=== PATIENT | female | born 1980 | race Caucasian/White ===

== ENCOUNTER → 2021-01-15 08:29 | Outpatient (BNVA) | payer OTHER, SELFPAY | PROVIDERS: PCP Family Medicine; Referring Provider Family Medicine; Visit Provider Physician Assistant | DX: E66.01 Morbid (severe) obesity due to excess calories (principal); Z68.42 Body mass index [BMI] 45.0-49.9, adult | CPT/HCPCS: 99202 ==

== ENCOUNTER 2021-01-18 08:02 | Outpatient (REF) | payer OTHER, SELFPAY ==
[2021-01-19 14:26] LABS: H Pylori Breath Test NOT DETECTED (NOT DETECTED)
== END 2021-01-18 08:03 | disposition home or self-care (01) ==
LOC: HO.LNP 08:02
PROVIDERS: Physician Assistant; PCP Family Medicine; Visit Provider Physician Assistant
DX: E66.01 Morbid (severe) obesity due to excess calories (principal); R06.02 Shortness of breath
CPT/HCPCS: 83013

== ENCOUNTER 2021-01-19 07:51 | Outpatient (REF) | payer OTHER, SELFPAY ==
--- NOTE | 2021-01-19 08:02 | ECG_ITS ---
Test Reason : E66.01 Blood Pressure : / mmHG Vent. Rate : 068 BPM Atrial Rate : 068 BPM P-R Int : 164 ms QRS Dur : 076 ms QT Int : 380 ms P-R-T Axes : 035 039 023 degrees QTc Int : 404 ms Normal sinus rhythm Normal ECG No previous ECGs available Referred By: Marga Esparza Electronically Signed By:Kleber Hudson
[2021-01-19 08:29] LABS: MANUAL DIFF FLAG NO
[2021-01-19 08:33] LABS: Eosinophils Absolute Auto 0.1 X10*3/uL (0.0-0.4); Eosinophils Percent Auto 2.9 % (0-4); Hematocrit 41.9 % (37-47); Hemoglobin 13.5 g/dl (12.0-16.0); Imm Gran Abs Auto 0.02 X10*3/uL (0.00-0.03); Imm Gran Pct Auto 0.5 % (0.0-0.4); Lymphocytes Absolute Auto 1.1 X10*3/uL (1.2-4.9); Lymphocytes Percent Auto 29.4 % (20-40); Mean Corpuscular HGB Conc 32.2 g/dl (31.0-35.0); Mean Corpuscular Hemoglobin 27.2 pg (27.0-33.0); Mean Corpuscular Volume 84.3 fL (80-98); Mean Platelet Volume 10.8 fL (9.4-12.3); Monocytes Absolute Auto 0.4 X10*3/uL (0.1-1.2); Monocytes Percent Auto 10.2 % (2-11); Neutrophils Absolute Auto 2.2 X10*3/uL (2.0-8.3); Platelet Count 260 X10*3/uL (160-400); Red Blood Count 4.97 X10*6/uL (4.20-5.50); Red Cell Distribution Width 13.2 % (11.0-16.0); White Blood Count 3.8 X10*3/uL (4.8-10.8)
[2021-01-19 08:56] LABS: Estimated Average Glucose 108 mg/dL; Hemoglobin A1c % 5.4 %
[2021-01-19 09:02] LABS: Alanine Aminotransferase 34 U/L (0-31); Albumin Level 3.8 g/dL (3.5-5.0); Alkaline Phosphatase 96 U/L (39-117); Anion Gap 11 (12-20); Aspartate Amino Transferase 25 U/L (5-31); Bilirubin Total 0.3 mg/dL (0.0-1.0); Blood Urea Nitrogen 13 mg/dL (9-16); Calcium 8.8 mg/dL (8.4-10.2); Carbon Dioxide 23 mmol/L (22-29); Chloride 110 mmol/L (96-108); Cholesterol 172 mg/dL; Estimated Glomerular Filt Rate > 60; Glucose Fasting 111 mg/dL (60-99); HDL Cholesterol 54 mg/dL; Iron 38 mcg/dL (30-160); LDL Cholesterol Calculated 104 mg/dl; Potassium 4.4 mmol/L (3.3-5.1); Sodium 140 mmol/L (135-145); Total Protein 6.7 g/dL (6.5-8.0); Triglycerides 70 mg/dL
[2021-01-19 09:19] LABS: Ferritin 24 ng/mL (10-250); TSH reflex Free T4 1.92 uIU/mL (0.32-4.0); Vitamin D 25-OH Total 32.7 ng/mL (>30)
[2021-01-19 09:23] LABS: Percent Iron Saturation 11 % (15-50); Total Iron Binding Capacity 336 mcg/dL (228-428); Unsaturated Iron Binding 298 ug/dL
[2021-01-19 09:39] LABS: Folate > 20.0 ng/mL (> or = 4.0); Vitamin B12 629 pg/mL (200-900)
[2021-01-22 11:36] LABS: Calcium (PTHI) 8.7 mg/dL (8.6-10.2); PTHI 58 pg/mL (14-64)
[2021-01-22 13:26] LABS: Insulin Level Total 11.3 uIU/mL
[2021-01-22 16:47] LABS: Zinc 74 mcg/dL (60-130)
[2021-01-23 19:41] LABS: Vitamin A 49 mcg/dL (38-98)
[2021-01-26 12:46] LABS: Vitamin B1 17 nmol/L (8-30)
== END 2021-01-19 07:52 | disposition home or self-care (01) ==
LOC: HO.LAB 07:51
PROVIDERS: PCP Family Medicine; Visit Provider Physician Assistant
DX: E66.01 Morbid (severe) obesity due to excess calories (principal); R06.02 Shortness of breath
CPT/HCPCS: 36415; 80053; 80061; 82306; 82607; 82728; 82746; 83036; 83525; 83540; 83970; 84425; 84443; 84590; 84630; 85025; 86140; 93005

== ENCOUNTER → 2021-02-09 08:27 | Outpatient (BNVA) | payer OTHER, SELFPAY | PROVIDERS: PCP Family Medicine; Visit Provider Dietitian, Registered | DX: E66.01 Morbid (severe) obesity due to excess calories (principal); Z68.41 Body mass index [BMI] 40.0-44.9, adult; Z71.3 Dietary counseling and surveillance | CPT/HCPCS: 97802 ==

== ENCOUNTER 2021-02-12 08:53 | Outpatient (REF) | payer OTHER, SELFPAY ==
--- NOTE | ~2021-02-12 | FL_ITS ---
EXAMINATION: XR GI SERIES CLINICAL INFORMATION: Obesity COMPARISON: None TECHNIQUE: Upper GI was performed using thin and barium and effervescent granules. FINDINGS: Esophageal motility is normal. The esophagus is normal. No hernia or reflux is seen. The stomach and duodenum are normal. No fold thickening, mass, ulcer or stricture is seen. FLUOROSCOPY TIME: 0.7 minutes DOSE AREA PRODUCT: 10 jackson per centimeter squared. 16 saved fluoroscopic images. FL/FL upper GI series IMPRESSION: Unremarkable examination.
--- NOTE | ~2021-02-12 | US_ITS ---
EXAMINATION: US COMPLETE ABDOMEN WITH LIVER ELASTOGRAPHY CLINICAL INFORMATION: Obesity. COMPARISON: None. TECHNIQUE: Real-time imaging of the abdominal viscera. Noninvasive ultrasound liver fibrosis assessment is performed using Yvon ElastPQ point quantification shear wave elastography (pSWE) with a C5-2 MHz transducer. Multiple elastography samples are obtained. FINDINGS: PANCREAS: Normal. The visualized pancreatic head and body are normal in appearance. The remainder of the pancreas is obscured from visualization by the overlying bowel gas. ABDOMINAL AORTA: The proximal, middle, and distal aortic segments are normal in caliber. INFERIOR VENA CAVA: Visualized portions are normal. LIVER: There is mildly increased liver parenchymal echogenicity. No focal hepatic mass is seen. The liver is normal in size and contour. No biliary ductal dilatation. The right lobe measures 18.4 cm in length. The left lobe measures 10.4 cm in length. Portal flow is towards the liver (hepatopetal). Shear wave liver elastography median stiffness is 1.18 m/s (reference: normal median stiffness is 1.3 m/s or less). IQR/median stiffness to assess sampling precision is 0.16 (reference: good quality data set is IQR/median stiffness of 0.15 or less). GALLBLADDER: There are large shadowing gallstones, without polyps, wall thickening or pericholecystic fluid. COMMON BILE DUCT: Normal in caliber measuring 0.3 cm in diameter. RIGHT KIDNEY: Normal. No hydronephrosis. No renal calculi or focal parenchymal lesions. The kidney measures 12.2 cm in maximum dimension. LEFT KIDNEY: Normal. No hydronephrosis. No renal calculi or focal parenchymal lesions. The kidney measures 11.9 cm in maximum dimension. SPLEEN: Normal. The spleen measures 12.1 cm in maximum dimension. FREE FLUID: None. US/US abdomen comp w elastography IMPRESSION: 1. There is generalized increase in hepatic echotexture, consistent with fatty infiltration or hepatocellular disease. Please correlate clinically. No focal hepatic mass or intrahepatic biliary dilatation is seen. 2. Liver elastography: Although measurements suggest a high probability of normal liver stiffness, there is statistical variability of the sampling which decreases accuracy. 3. There is cholelithiasis, without cholecystitis seen. REFERENCE: Society of Radiologists in Ultrasound Liver Stiffness Thresholds (2020): LIVER STIFFNESS THRESHOLDS: *Liver Stiffness equal or less than 1.3 m/s: High probability of being normal. *Liver Stiffness less than 1.7 m/s: In the absence of other known clinical signs, rules out compensated advanced chronic liver disease. *Liver Stiffness 1.7-2.1 m/s: Suggestive of compensated advanced chronic liver disease but need further test for confirmation. *Liver Stiffness over 2.1 m/s: Rules in compensated advanced chronic liver disease. *Liver Stiffness over 2.4 m/s: Suggestive of clinically significant portal hypertension. QUALITY OF DATA SET: *IQR/Median value equal or less than 0.15 implies a quality data set. *IQR/Median value over 0.15 implies a poor quality data set. SIGNIFICANT CHANGE FROM PRIOR EXAM: Significant change if liver stiffness measurement is 10% or greater from prior exam. OTHER CONSIDERATIONS: The stage of liver fibrosis may be overestimated in the setting of acute hepatitis, liver inflammation, elevated liver function tests, hepatic vascular congestion, obstructive cholestasis, non-fasting state, and infiltrative diseases such as amyloidosis and lymphoma. In some patients with NAFLD, the liver stiffness thresholds for compensated advanced chronic liver disease may be lower. In causes other than viral hepatitis and NAFLD, liver stiffness thresholds are not well established.
--- NOTE | ~2021-02-12 | XR_ITS ---
EXAMINATION: XR CHEST 2 VIEWS CLINICAL INFORMATION: Morbid obesity. COMPARISON: None. TECHNIQUE: Frontal and lateral views of the chest were obtained. FINDINGS: The heart, great vessels, pulmonary vasculature and mediastinum are normal. The lungs show no focal infiltrate, effusion or pneumothorax. There is no acute osseous abnormality. XR/XR chest 2V IMPRESSION: No active cardiopulmonary disease.
== END 2021-02-12 08:54 | disposition home or self-care (01) ==
LOC: HO.US 08:53
PROVIDERS: PCP Family Medicine; Visit Provider Surgery
DX: Z01.818 Encounter for other preprocedural examination (principal); E66.01 Morbid (severe) obesity due to excess calories; K21.9 Gastro-esophageal reflux disease without esophagitis; R06.02 Shortness of breath
CPT/HCPCS: 71046; 74240; 76705; 76981

== ENCOUNTER → 2021-03-12 07:45 | Outpatient (BNVA) | payer OTHER, SELFPAY | PROVIDERS: PCP Family Medicine; Visit Provider Surgery ==

== ENCOUNTER → 2021-04-04 08:09 | Outpatient (BNVA) | payer OTHER, SELFPAY | PROVIDERS: PCP Family Medicine; Visit Provider Surgery ==

== ENCOUNTER → 2021-04-30 07:56 | Outpatient (BNVA) | payer OTHER, SELFPAY | PROVIDERS: PCP Family Medicine; Visit Provider Surgery ==

== ENCOUNTER 2021-05-03 08:27 | Day surgery (SDC) | payer OTHER, SELFPAY ==
[2021-04-27 10:54] VITALS: BMI 41.8
[2021-04-30 08:00] LABS: MANUAL DIFF FLAG NO
[2021-04-30 08:42] LABS: Prothrombin Time 11.5 SEC (9.9-13.0)
[2021-04-30 08:43] LABS: Basophils Percent Auto 0.6 % (0-2); Eosinophils Absolute Auto 0.2 X10*3/uL (0.0-0.4); Eosinophils Percent Auto 2.9 % (0-4); Hematocrit 42.1 % (37.0-47.0); Hemoglobin 13.9 g/dl (12.0-16.0); Imm Gran Abs Auto 0.03 X10*3/uL (0.00-0.03); Imm Gran Pct Auto 0.6 % (0.0-0.4); Lymphocytes Absolute Auto 1.1 X10*3/uL (1.2-4.9); Lymphocytes Percent Auto 21.7 % (20-40); Mean Corpuscular Hemoglobin 27.7 pg (27.0-33.0); Mean Corpuscular Volume 83.9 fL (80.0-98.0); Mean Platelet Volume 11.2 fL (9.4-12.3); Monocytes Absolute Auto 0.3 X10*3/uL (0.1-1.2); Monocytes Percent Auto 6.5 % (2-11); Neutrophils Absolute Auto 3.5 x10*3/uL (2.0-8.3); Neutrophils Percent Auto 67.7 % (45-73); Platelet Count 243 X10*3/uL (160-400); Red Blood Count 5.02 X10*6/uL (4.20-5.50); Red Cell Distribution Width 13.1 % (11.0-16.0); White Blood Count 5.2 X10*3/uL (4.8-10.8)
[2021-04-30 08:45] LABS: Partial Thromboplastin Time 35.7 SEC (24.1-38.0)
[2021-04-30 09:04] LABS: Alanine Aminotransferase 20 U/L (0-31); Albumin Level 3.8 g/dL (3.5-5.0); Alkaline Phosphatase 77 U/L (39-117); Anion Gap 10 (12-20); Aspartate Amino Transferase 19 U/L (5-31); Bilirubin Total 0.7 mg/dL (0.0-1.0); Blood Urea Nitrogen 9 mg/dL (9-16); Calcium 8.8 mg/dL (8.4-10.2); Carbon Dioxide 26 mmol/L (22-29); Chloride 107 mmol/L (96-108); Creatinine Clr Calc Pharmacy 138.4; Estimated Glomerular Filt Rate > 60; Glucose Random 111 mg/dL (60-115); Sodium 139 mmol/L (135-145); Total Protein 6.5 g/dL (6.5-8.0)
--- NOTE | 2021-05-02 10:22 | HO.ANESPROP2 ---
Documented by User: Tarsha Camargo NP 05/02/21 10:23 HPI - Anesthesia Eval Consult details Narrative: 41yo F for Cholecystectomy Laparoscopic PMFSH Active Problems Active Problems: All Active Problems (Updated 04/30/21 @ 07:57 by Curt Landis MD) Cholelithiasis (Acute) Nausea (Acute) Adjustment disorder, unspecified (Acute) Morbid obesity (Acute) BMI 45.0-49.9, adult (Acute) Arthritis (Acute) Past Medical History Medical History (Updated 04/30/21 @ 07:57 by Curt Landis MD) Arthritis BMI 45.0-49.9, adult COVID-19 vaccine series completed History of adenoid cystic carcinoma Morbid obesity Pre-diabetes Torn meniscus Family History Family History (Updated 01/15/21 @ 08:56 by Tayla Sandy) Mother COVID-19 Sister No problems noted. Sister No problems noted. Sister No problems noted. Son No problems noted. Daughter No problems noted. Daughter No problems noted. Brother Crohn disease Brother No problems noted. Brother No problems noted. Father COVID-19 Crohn disease Surgical History Surgical History (Updated 01/15/21 @ 08:47 by Tayla Sandy) Hx of tonsillectomy Hx of wisdom tooth extraction Social History Social History (Updated 02/15/21 @ 14:10 by Vivek Sandy, [facility]) Alcohol intake: current Alcohol intake frequency: holidays/special occasions only Patient Tobacco Use Status: Never used Tobacco Use of substances other than those prescribed or required for medical reasons: No Have you been hit, kicked, punched, or otherwise hurt by someone within the past year? If so, by whom?: No Are you DNR?: No Advance Directives: No Advance Directives Information Provided: Yes (informational brochure mailed) Advance Directives on File: No Recently lost weight without trying: No Eating poorly because of decreased appetite: No Nutrition Risks: No Nutritional Risk Patient : No FDLMP: 04/15/21 Poor oral hygiene: No Meds Allergies Allergy/AdvReac Type Severity Reaction Status Date / Time No Known Allergies Allergy Verified 03/12/21 12:31 [No Known Allergies*] Exam Exam Date and Time: May 02, 2021 1022 Height,Weight and Vital Signs: Height 5 ft 6 in Weight 117.48 kg Pertinent Lab Results Pertinent Lab Results: Laboratory Tests 04/30/21 04/30/21 04/30/21 07:45 07:45 07:45 WBC 5.2 RBC 5.02 Hgb 13.9 Hct 42.1 MCV 83.9 MCH 27.7 MCHC 33.0 RDW 13.1 Plt Count 243 MPV 11.2 Immature Gran % (Auto) 0.6 H Neut % (Auto) 67.7 Lymph % (Auto) 21.7 [place] % (Auto) 6.5 Eos % (Auto) 2.9 Baso % (Auto) 0.6 Lymph # (Auto) 1.1 L [place] # (Auto) 0.3 Eos # (Auto) 0.2 Baso # (Auto) 0.0 Abs Immat Gran (auto) 0.03 Absolute Neuts (auto) 3.5 Absolute Nucleated RBC 0.000 Nucleated RBC % (auto) 0.0 PT 11.5 INR 1.0 APTT 35.7 Sodium 139 Potassium 4.0 Chloride 107 Carbon Dioxide 26 Anion Gap 10 L BUN 9 Creatinine 0.69 Estim Creat Clear Calc 138.4 Estimated GFR > 60 Random Glucose 111 Calcium 8.8 Total Bilirubin 0.7 AST 19 ALT 20 Alkaline Phosphatase 77 Total Protein 6.5 Albumin 3.8 Blood Type Antibody Screen 04/30/21 07:45 WBC RBC Hgb Hct MCV MCH MCHC RDW Plt Count MPV Immature Gran % (Auto) Neut % (Auto) Lymph % (Auto) [place] % (Auto) Eos % (Auto) Baso % (Auto) Lymph # (Auto) [place] # (Auto) Eos # (Auto) Baso # (Auto) Abs Immat Gran (auto) Absolute Neuts (auto) Absolute Nucleated RBC Nucleated RBC % (auto) PT INR APTT Sodium Potassium Chloride Carbon Dioxide Anion Gap BUN Creatinine Estim Creat Clear Calc Estimated GFR Random Glucose Calcium Total Bilirubin AST ALT Alkaline Phosphatase Total Protein Albumin Blood Type A Positive Antibody Screen NEGATIVE Narrative Narrative: EKG 01/2021 Vent. Rate : 068 BPM ? ? Atrial Rate : 068 BPM ?? P-R Int : 164 ms? QRS Dur : 076 ms ? ? QT Int : 380 ms ? ? ? P-R-T Axes : 035 039 023 degrees ?? QTc Int : 404 ms ? Normal sinus rhythm Normal ECG No previous ECGs available Assessment and Plan Assessment Anesthesia Assessment: Chart Reviewed Documented by User: Rocio Cerna MD 05/03/21 10:00 [facility] Past Medical History Medical History (Updated 04/30/21 @ 07:57 by Curt Landis MD) Arthritis BMI 45.0-49.9, adult COVID-19 vaccine series completed History of adenoid cystic carcinoma Morbid obesity Pre-diabetes Torn meniscus Family History Family History (Updated 01/15/21 @ 08:56 by Tayla Sandy) Mother COVID-19 Sister No problems noted. Sister No problems noted. Sister No problems noted. Son No problems noted. Daughter No problems noted. Daughter No problems noted. Brother Crohn disease Brother No problems noted. Brother No problems noted. Father COVID-19 Crohn disease Family history of problems with anesthesia: No Surgical History Surgical History (Updated 01/15/21 @ 08:47 by Tayla Sandy) Hx of tonsillectomy Hx of wisdom tooth extraction History of Problems with Anesthesia: No Social History Social History (Updated 02/15/21 @ 14:10 by Vivek Sandy, [facility]) Alcohol intake: current Alcohol intake frequency: holidays/special occasions only Patient Tobacco Use Status: Never used Tobacco Use of substances other than those prescribed or required for medical reasons: No Have you been hit, kicked, punched, or otherwise hurt by someone within the past year? If so, by whom?: No Are you DNR?: No Advance Directives: No Advance Directives Information Provided: Yes (informational brochure mailed) Advance Directives on File: No Recently lost weight without trying: No Eating poorly because of decreased appetite: No Nutrition Risks: No Nutritional Risk Patient : No FDLMP: 04/15/21 Poor oral hygiene: No Meds Allergies Allergy/AdvReac Type Severity Reaction Status Date / Time No Known Allergies Allergy Verified 03/12/21 12:31 [No Known Allergies*] Exam Height,Weight and Vital Signs: Height 5 ft 6 in Weight 117.48 kg Vital Signs Temp Pulse Resp BP Pulse Ox 05/03/21 09:26 98.4 F 72 16 108/52 L 99 Airway Mallampati Class: II TM Dist: >3cm Neck ROM: Full Loose/Missing/Broken Teeth: No Heart: RRR Lungs: CTAB Assessment and Plan Assessment Anesthesia Assessment: Anesthesia Plan Discussed Final Anesthetic Review Family History of Problems with Anesthesia: No History of Problems with Anesthesia: No NPO: Yes ASA Class: III Final Preanesthetic Review: No Changes in Pt Med Stat, Meds/Allgs Chart Reviewed, Consent Obtained/Reviewed and Anes Risks/Benef Reviewed Patient Risk: Intermediate Procedure Risk: Intermediate Assessment/Block/Sedation in SS: Assess/Block/Sedation-SS Anesthetic Plan Anesthetic Plan: GA Disposition: Standard PACU and Inp. Admit - Standard Bed
--- NOTE | 2021-05-02 17:30 | P.HPSUR_ITS ---
Pre-Procedural Eval Section A Date of Service: 05/02/21 The patient is an INPATIENT: No The History & Physical has been completed within 30 days and I have reviewed it.: Yes Section B Chief Complaint: Cholecysytitis Relevant Family History (Specify if Yes): No Relevant Social History: None Present Medications: None Medical History: No relevant PMH History of Previous Operations: No relevant previous surgery Allergies: Allergies Allergy/AdvReac Type Severity Reaction Status Date / Time No Known Allergies Allergy Verified 03/12/21 12:31 [No Known Allergies*] Review of Systems Sugical H&P ROS: Negative: Constitution, Cardiovascular, Respiratory, Neurological, Psychiatric, Hem-Onc, Allergic/Immunologic, Gastrointestinal, Genitourinary, Musculoskeletal, Integumentary, Endocrine and Eyes/Ears/Nose/Thr oat Exam Surgical H&P Exam: Normal: HEENT, Normal: Heart, Normal: Lungs, Normal: Extremities, Normal: Abdomen, Normal: Skin and Normal: Neurological Plan Diagnosis/Plan: Unchanged I have reviewed the history and physical and performed a pertinent physical examination on my patient. No changes have occurred unless specified.
[2021-05-03] VITALS (14 sets, daily range): BP systolic 108–132; BP diastolic 48–80; PULSE 58–77; RESP 14–18; TEMP 36.1–37.2; O2SAT 95–100; BMI 41.4
[2021-05-03 09:05] LABS: UPreg QC Valid YES; Urine Pregnancy NEGATIVE (NEGATIVE)
[2021-05-03] MEDS: Lactated Ringers 1,000 ML 100 ML IVCONT (09:28)
[2021-05-03 09:30] LABS: COVID-19 Test Negative (Negative)
--- NOTE | 2021-05-03 13:06 | PM.DS ---
DS: Providers Provider Primary care physician: Frieda Fisher MD DS: Summary Hospital Course Hospital Course: ADMITTING DIAGNOSIS: morbid obesity, cholelithiasis DISCHARGE DIAGNOSIS: same, s/p laparoscopic cholecystectomy PAST SURGICAL HISTORY: tonsils and wisdom teeth PROCEDURE: laparoscopic cholecystectomy DISCHARGE SUMMARY: History of Present Illness: The patient is a 41 year-old woman with a BMI of 41.5 who has been preparing for surgery. She was found to have cholelithiasis and consented to undergo elective laparoscopic cholecystecotmy on the day of admission. Please see operative report by Dr Landis. Hospital Course: The patient underwent laparoscopic cholecystectomy on the day of admission. Decision was made by Dr Landis to keep the patient overngith for observation. Postoperatively, the patient was transferred to the surgical floor. The patient received IV Acetaminophen and IV dilaudid for pain control. Patient was kept NPO POD #0. On postoperative day one, the patient was feeling well without nausea, vomiting, fevers, or tachycardia. The patient had some mild incisional pain and the abdomen was soft. On the morning of postoperative day one, patients diet was advanced, she had stable labs. During the day, the patient did fairly well, having some incisional pain, but able to ambulate adequately and to tolerate liquids well. Since the patient is doing well, we decided that the patient was ready to be discharged. The patient was given instructions to follow-up with me next week and to call my office for any fever over 101, persistent abdominal pain, nausea, vomiting, GERD, symptoms of DVT such as calf tenderness, or leg swelling, or pulmonary embolism such as chest pain or shortness of breath. The patient was encouraged to ambulate and use the incentive spirometer. The patient was allowed to shower, but no baths, and encouraged to stay active at home. All of these instructions were given to the patient personally. All questions were answered and the patient understood all instructions, the instructions were also given to the patient in print. Time Spent with Patient Time attestation: Total time spent providing and/or coordinating discharge services: Physical Exam Vital Signs: Vital Signs: Last Vital Signs Temp 98.4 F 05/03/21 09:26 Pulse 72 05/03/21 09:26 Resp 16 05/03/21 09:26 BP 108/52 L 05/03/21 09:26 Pulse Ox 99 05/03/21 09:26 Body Mass Index 41.4 DS: Data Data Completed and Pending Pending studies at discharge: Pending at discharge 05/03/21 12:24 Surgical [PTH] Routine Labs on day of discharge: Laboratory Results - last 24 hr 05/03/21 05/03/21 08:30 08:31 Urine Test NEGATIVE COVID-19 ([facility]) Negative COVID-19 Clin Com See Note Discharge Plan Discharge Patient Disposition: Home, Self-Care Referrals: Frieda Fisher MD [Primary Care Provider] - 1 Week Discharge Medications: No Action ondansetron HCl [Zofran] 4 mg tablet 4 mg PO Q12H Qty: 20 RF: 0
--- NOTE | 2021-05-03 13:10 | PM.OP ---
Brief Operative Note Date of Service: 05/03/21 Pre-op diagnosis: Cholelithiasis Post-op diagnosis: other (Cholelithiasis and chronic cholecystitis, extensive adhesions) Procedure: PROCEDURE DATE: ?05/02/2021 PREOPERATIVE DIAGNOSIS: Symptomatic cholelithiasis, morbid obesity with a body mass index of 45.2 kg/sq. meters and comorbidities including prediabetes and liver steatosis POSTOPERATIVE DIAGNOSIS: ?Same as above. Chronic cholecystitis, intraoperative adhesions PROCEDURE: Laparoscopic cholecystectomy and extensive laparoscopic lysis of adhesions Surgeon: ? José Luis Landis M.D., Ph.D. Propulsion Machinery Service Engineer: ?Leida Wright PA-C ? Anesthesia: General endotracheal anesthesia Estimated blood loss: ?20ml FINDINGS AND PROCEDURE: ? OPERATIVE INDICATIONS: ?The patient is a 41 year old female known to me who was initially seen in my office for evaluation for refractory morbid obesity.? During the preoperative workup, the patient was found to have cholelithiasis which appears to be symptomatic.? We recommended cholecystectomy before the bariatric surgery due to the higher risks of acute cholecystitis after the bariatric surgery as a result of the rapid weight loss. Risks and complications of the surgery were discussed with the patient in advance, particularly the postoperative bleeding, infection, DVT or PE, bile leak, major bile duct injury that may require additional surgical intervention, cardiac, pulmonary or renal complications among others.? The patient understood the risks and was in agreement with the plan. PROCEDURE: After informed consent was obtained by the patient, the patient was transferred to the Operating Room and was placed in the supine position.? The patient was given preoperative antibiotics and after successful induction of general anesthesia, pneumatic compression devices were placed. ? The patient was then prepped and draped in the usual sterile manner and abdominal access was ?established with Angela technique.? The abdomen was insufflated with C02 to a pressure of 15 mmHg. A 5 mm Versi-step port was placed, slightly to the right and superior from the umbilicus. The 5 mm camera was introduced.? I inspected the area where the port had been placed and there was no injury.? The patient was then placed initially in a steep reverse Trendelenburg position and three additional ports were placed, specifically a 12 mm Versi-step port just to the right of the midline below the xiphoid process and two 5 mm Versi-step ports at the right upper quadrant and right flank. ? At that point the patient was ?placed in a steep reverse Trendelenburg position tilted to the left side. The gallbladder was retracted cephalad and laterally. There were extensive adhesions between the omentum and the entire gallbladder wall and liver. Extensive adhesiolysis was required and all adhesions were taken down with the cautery. ? The peritoneal attachments of the gallbladder ?at the triangle of Calot posteriorly and anteriorly were taken down.? The cystic duct and artery were both seen. Dissection was very difficult due to dense fibrotic reaction from previous episodes of cholecystitis, body habitus and hepatomegaly. They were eventually completely dissected free, skeletonized all the way to the infundibulum of the gallbladder. In a similar fashion I also cleaned the liver bed just behind the cystic artery all the way to the liver bed half way to the top of the gallbladder, to make sure there was no additional structures in this area.? Once I confirmed that both structures were entering into the gallbladder ?and there were no other structures in the area, they were both clipped with two clips proximally, one distally and were cut in-between. Then using the electrocautery, I slowly took down the gallbladder ?from the liver bed. Small areas of bleeding from the liver parenchyma were controlled with the cautery as well as with the use of Surgicel.? After the gallbladder was completely detached from the liver bed, it was placed in an EndoCatch bag and was removed without difficulty from the xiphoid port. I then inspected the clips at the cystic duct and artery and were both in place.?A piece of Surgicel was placed at the area of the cystic artery and duct. There was no active bleeding from the liver bed. I removed all fluid until clear. At that point the patient was placed in supine position, we deflated the abdomen and we removed all ports under direct vision and no bleeding was noted from any of the port sites. The fascia of the 12 mm port was closed using a #1 Polysorb suture. 60cc 0.25% Marcaine and Hydrocortisone were used to infiltrate the fascial closure as well as all skin incisions. The wounds were irrigated with saline mixed with antibiotic solution and then the skin was closed with 4-0 Monocryl subcuticular sutures antibiotic-coated. Steri-strips and OpSites were used to cover all incisions. The patient extubated and was transferred in stable condition to the Recovery Room for further care. I was present and performed all steps of the procedure. Ms. Wright was the certified surgical tech/first assistant.? There were no residents to assist with this case. Procedure was very difficult due to the reasons described above with significant prolongation of the operative time to 2 hours and 15 minutes. José Luis Landis M.D., Ph.D., F.A.C.S. Surgeon: Curt Landis MD Anesthesia: GETA, local and other (TAP block) Was an Propulsion Machinery Service Engineer used for this Procedure?: Yes Propulsion Machinery Service Engineer: Leida Wright Estimated blood loss (mL): 20 IV fluids (mL): 2,500 Urine output (mL): 0 (No Lim to record) Pathology: other (Gallbladder) Condition: stable Disposition: PACU
[2021-05-03 13:38] LABS: Hematocrit 43.4 % (37.0-47.0); Hemoglobin 13.9 g/dl (12.0-16.0)
[2021-05-03] MEDS: fentaNYL citrate/PF 100 MCG/2 ML VIAL 25 MCG IVPUSH (13:42)
[2021-05-03 14:08] LABS: Anion Gap 13 (12-20); Blood Urea Nitrogen 11 mg/dL (9-16); Calcium 8.5 mg/dL (8.4-10.2); Carbon Dioxide 21 mmol/L (22-29); Chloride 107 mmol/L (96-108); Creatinine Clr Calc Pharmacy 117.4; Estimated Glomerular Filt Rate > 60; Glucose Random 132 mg/dL (60-115); Potassium 4.4 mmol/L (3.3-5.1); Sodium 137 mmol/L (135-145)
--- NOTE | 2021-05-03 15:06 | PC.NURSE ---
Dr. George at bedside reviewed vitals and labs talked with patient and will be discharging her home. awaiting orders.
== END 2021-05-03 15:47 | disposition home or self-care (01) ==
LOC: HO.SSS 14:32 → HO.S3 14:36
PROVIDERS: Nurse Practitioner; Physician Assistant; PCP Family Medicine; Visit Provider Surgery
PROC: 0FT44ZZ Resection of Gallbladder, Percutaneous Endoscopic Approach (ICD-10-PCS; CPT 47562; principal; 2021-05-03 10:10)
DX: K80.10 Calculus of gallbladder with chronic cholecystitis without obstruction (principal); K66.0 Peritoneal adhesions (postprocedural) (postinfection); E66.01 Morbid (severe) obesity due to excess calories; Z68.42 Body mass index [BMI] 45.0-49.9, adult; K76.0 Fatty (change of) liver, not elsewhere classified; R73.03 Prediabetes; Z85.858 Personal history of malignant neoplasm of other endocrine glands; Z20.822 Contact with and (suspected) exposure to COVID-19
CPT/HCPCS: 47562; 36415; 80048; 80053; 81025; 85014; 85018; 85025; 85610; 85730; 86850; 86900; 86901; 87635; 88304; J0131; J0690; J1100; J2250; J2405; J3010

== ENCOUNTER → 2021-05-16 07:17 | Outpatient (BNVA) | payer OTHER, SELFPAY | PROVIDERS: PCP Family Medicine; Referring Provider Family Medicine; Visit Provider Surgery | DX: E66.01 Morbid (severe) obesity due to excess calories (principal); Z90.49 Acquired absence of other specified parts of digestive tract; Z68.41 Body mass index [BMI] 40.0-44.9, adult | CPT/HCPCS: 99212 ==

== ENCOUNTER → 2021-05-18 13:25 | Outpatient (BNVA) | payer OTHER, SELFPAY | PROVIDERS: PCP Family Medicine; Referring Provider Family Medicine; Visit Provider Physician Assistant ==

== ENCOUNTER 2021-05-24 07:39 | Outpatient (REF) | payer OTHER, SELFPAY ==
[2021-05-24 08:07] LABS: MANUAL DIFF FLAG NO
[2021-05-24 08:43] LABS: Basophils Absolute Auto 0.1 X10*3/uL (0.0-0.2); Basophils Percent Auto 0.9 % (0-2); Eosinophils Absolute Auto 0.2 X10*3/uL (0.0-0.4); Eosinophils Percent Auto 3.6 % (0-4); Hematocrit 41.6 % (37.0-47.0); Hemoglobin 13.2 g/dl (12.0-16.0); Imm Gran Abs Auto 0.03 X10*3/uL (0.00-0.03); Imm Gran Pct Auto 0.6 % (0.0-0.4); Lymphocytes Absolute Auto 1.3 X10*3/uL (1.2-4.9); Lymphocytes Percent Auto 23.9 % (20-40); Mean Corpuscular HGB Conc 31.7 g/dl (31.0-35.0); Mean Corpuscular Hemoglobin 27.4 pg (27.0-33.0); Mean Corpuscular Volume 86.3 fL (80.0-98.0); Mean Platelet Volume 11.9 fL (9.4-12.3); Monocytes Absolute Auto 0.3 X10*3/uL (0.1-1.2); Monocytes Percent Auto 6.4 % (2-11); Neutrophils Absolute Auto 3.4 x10*3/uL (2.0-8.3); Neutrophils Percent Auto 64.6 % (45-73); Platelet Count 288 X10*3/uL (160-400); Red Blood Count 4.82 X10*6/uL (4.20-5.50); Red Cell Distribution Width 12.8 % (11.0-16.0); White Blood Count 5.3 X10*3/uL (4.8-10.8)
[2021-05-24 09:12] LABS: Alanine Aminotransferase 78 U/L (0-31); Albumin Level 3.8 g/dL (3.5-5.0); Alkaline Phosphatase 97 U/L (39-117); Anion Gap 12 (12-20); Aspartate Amino Transferase 42 U/L (5-31); Bilirubin Total 0.6 mg/dL (0.0-1.0); Blood Urea Nitrogen 9 mg/dL (9-16); C Reactive Protein 0.54 mg/dL (< or = 0.50); Calcium 9.7 mg/dL (8.4-10.2); Carbon Dioxide 26 mmol/L (22-29); Chloride 108 mmol/L (96-108); Cholesterol 162 mg/dL; Estimated Glomerular Filt Rate > 60; Glucose Random 104 mg/dL (60-115); HDL Cholesterol 52 mg/dL; LDL Cholesterol Calculated 81 mg/dl; Potassium 3.8 mmol/L (3.3-5.1); Sodium 142 mmol/L (135-145); Total Protein 6.5 g/dL (6.5-8.0); Triglycerides 149 mg/dL
[2021-05-24 09:19] LABS: Estimated Average Glucose 103 mg/dL; Hemoglobin A1c % 5.2 %
[2021-05-24 09:25] LABS: Prothrombin Time 10.8 SEC (9.9-13.0)
[2021-05-24 09:27] LABS: Partial Thromboplastin Time 36.8 SEC (24.1-38.0)
[2021-05-24 09:37] LABS: TSH reflex Free T4 1.57 uIU/mL (0.32-4.0)
[2021-05-24 10:39] LABS: Insulin 7 uU/mL (2-29)
== END 2021-05-24 07:40 | disposition home or self-care (01) ==
LOC: HO.LAB 07:39
PROVIDERS: PCP Family Medicine; Visit Provider Surgery
DX: E66.01 Morbid (severe) obesity due to excess calories (principal)
CPT/HCPCS: 36415; 80053; 80061; 83036; 83525; 84443; 85025; 85610; 85730; 86140

== ENCOUNTER 2021-05-31 10:02 | Inpatient (IN) | payer OTHER, SELFPAY ==
[2021-05-17 09:37] VITALS: BMI 40.7
--- NOTE | 2021-05-26 20:38 | P.HPSUR_ITS ---
Pre-Procedural Eval Section A Date of Service: 05/26/21 The patient is an INPATIENT: Yes The History & Physical has been completed within 30 days and I have reviewed it.: Yes Section B Chief Complaint: Morbid Severe Obesity Relevant Family History (Specify if Yes): No Relevant Social History: None Present Medications: None Medical History: No relevant PMH History of Previous Operations: No relevant previous surgery Allergies: Allergies Allergy/AdvReac Type Severity Reaction Status Date / Time No Known Allergies Allergy Verified 05/16/21 07:33 [No Known Allergies*] Review of Systems Sugical H&P ROS: Negative: Constitution, Cardiovascular, Respiratory, Neurological, Psychiatric, Hem-Onc, Allergic/Immunologic, Gastrointestinal, Genitourinary, Musculoskeletal, Integumentary, Endocrine and Eyes/Ears/ Nose/Throat Exam Surgical H&P Exam: Normal: HEENT, Normal: Heart, Normal: Lungs, Normal: Extremities, Normal: Abdomen, Normal: Skin and Normal: Neurological Plan Diagnosis/Plan: Unchanged I have reviewed the history and physical and performed a pertinent physical examination on my patient. No changes have occurred unless specified.
--- NOTE | 2021-05-30 09:37 | HO.ANESPROP2 ---
Documented by User: Tarsha Camargo NP 05/30/21 09:46 HPI - Anesthesia Eval Consult details Narrative: 41yo F for Gastrectomy Sleeve, EGD, Possible Diaphragmatic Hernia, Possible Ventral Hernia, Possible open s/p lap bia 04/2021 with GA-ETT 7 PMFSH Active Problems Active Problems: All Active Problems (Updated 05/08/21 @ 00:03 by Background Daemon) Cholelithiasis (Acute) S/P laparoscopic cholecystectomy (Acute) Morbid obesity (Acute) Past Medical History Medical History (Updated 05/08/21 @ 00:03 by Background Daemon) Adjustment disorder, unspecified Arthritis BMI 45.0-49.9, adult COVID-19 vaccine series completed History of adenoid cystic carcinoma Morbid obesity Nausea Pre-diabetes Torn meniscus Family History Family History Mother COVID-19 Sister No problems noted. Sister No problems noted. Sister No problems noted. Son No problems noted. Daughter No problems noted. Daughter No problems noted. Brother Crohn disease Brother No problems noted. Brother No problems noted. Father COVID-19 Crohn disease Family history of problems with anesthesia: No Surgical History Surgical History (Updated 05/17/21 @ 09:21 by Amanda Ramesh RN) Hx laparoscopic cholecystectomy Hx of tonsillectomy Hx of wisdom tooth extraction History of Problems with Anesthesia: No Social History Social History Are you a primary health care recruiter to a significant other at home: No Do you presently have visiting nurse or other home services: No Alcohol intake: current Alcohol intake frequency: holidays/special occasions only Patient Tobacco Use Status: Never used Tobacco Meds Allergies Allergy/AdvReac Type Severity Reaction Status Date / Time No Known Allergies Allergy Verified 05/31/21 06:17 [No Known Allergies*] Exam Exam Date and Time: May 30, 2021 0937 Height,Weight and Vital Signs: Height 5 ft 6 in Weight 114.577 kg Pertinent Lab Results Pertinent Lab Results: Laboratory Tests 05/24/21 08:00 Blood Type A Positive Antibody Screen NEGATIVE Laboratory Tests 05/24/21 05/24/21 08:00 08:00 WBC 5.3 Hgb 13.2 Hct 41.6 Plt Count 288 Sodium 142 Potassium 3.8 Chloride 108 Carbon Dioxide 26 BUN 9 Creatinine 0.69 Narrative Narrative: EKG 01/2021 Vent. Rate : 068 BPM ? ? Atrial Rate : 068 BPM ?? P-R Int : 164 ms? QRS Dur : 076 ms ? ? QT Int : 380 ms ? ? ? P-R-T Axes : 035 039 023 degrees ?? QTc Int : 404 ms ? Normal sinus rhythm Normal ECG No previous ECGs available Assessment and Plan Assessment Anesthesia Assessment: Chart Reviewed Final Anesthetic Review Family History of Problems with Anesthesia: No History of Problems with Anesthesia: No Documented by User: Rocio Cerna MD 05/31/21 07:27 [facility] Past Medical History Medical History (Updated 05/08/21 @ 00:03 by Anthony Farmer) Adjustment disorder, unspecified Arthritis BMI 45.0-49.9, adult COVID-19 vaccine series completed History of adenoid cystic carcinoma Morbid obesity Nausea Pre-diabetes Torn meniscus Family History Family History Mother COVID-19 Sister No problems noted. Sister No problems noted. Sister No problems noted. Son No problems noted. Daughter No problems noted. Daughter No problems noted. Brother Crohn disease Brother No problems noted. Brother No problems noted. Father COVID-19 Crohn disease Surgical History Surgical History (Updated 05/17/21 @ 09:21 by Amanda Ramesh RN) Hx laparoscopic cholecystectomy Hx of tonsillectomy Hx of wisdom tooth extraction Social History Social History Are you a primary health care recruiter to a significant other at home: No Do you presently have visiting nurse or other home services: No Alcohol intake: current Alcohol intake frequency: holidays/special occasions only Patient Tobacco Use Status: Never used Tobacco Meds Allergies Allergy/AdvReac Type Severity Reaction Status Date / Time No Known Allergies Allergy Verified 05/31/21 06:17 [No Known Allergies*] Exam Height,Weight and Vital Signs: Height 5 ft 6 in Weight 114.577 kg Vital Signs Temp Pulse Resp BP Pulse Ox 05/31/21 06:29 98.8 F 71 16 115/53 L 97 Pertinent Lab Results Pertinent Lab Results: Laboratory Tests 05/24/21 08:00 Blood Type A Positive Antibody Screen NEGATIVE Laboratory Tests 05/24/21 05/24/21 08:00 08:00 WBC 5.3 Hgb 13.2 Hct 41.6 Plt Count 288 Sodium 142 Potassium 3.8 Chloride 108 Carbon Dioxide 26 BUN 9 Creatinine 0.69 Lab Results 05/24/21 05/31/21 05/31/21 Range/Units 08:00 06:10 06:15 Urine Test NEGATIVE (NEGATIVE) COVID-19 ([facility]) Negative (Negative) COVID-19 Clin Com See Note Blood Type A Positive Antibody Screen NEGATIVE Airway Mallampati Class: II TM Dist: >3cm Neck ROM: Full Loose/Missing/Broken Teeth: Yes (Some extractions) Heart: RRR Lungs: CTAB Assessment and Plan Assessment Anesthesia Assessment: Anesthesia Plan Discussed Final Anesthetic Review NPO: Yes ASA Class: III Final Preanesthetic Review: No Changes in Pt Med Stat, Meds/Allgs Chart Reviewed, Consent Obtained/Reviewed and Anes Risks/Benef Reviewed Patient Risk: Intermediate Procedure Risk: Intermediate Anesthetic Plan Anesthetic Plan: GA Disposition: Standard PACU and Inp. Admit - Standard Bed
[2021-05-31] VITALS (16 sets, daily range): BP systolic 115–162; BP diastolic 53–94; PULSE 66–72; RESP 14–18; TEMP 36.8–37.7; O2SAT 96–100
[2021-05-31 06:33] LABS: UPreg QC Valid YES; Urine Pregnancy NEGATIVE (NEGATIVE)
[2021-05-31 06:41] LABS: COVID-19 Test Negative (Negative)
[2021-05-31] MEDS: Lactated Ringers 1,000 ML 999 ML IV (06:57)
[2021-05-31] MEDS: ceFAZolin Sodium/Dextrose,Iso 2 GM/50 ML PIGGYBACK IV ×2 (07:46→13:31)
--- NOTE | 2021-05-31 10:05 | PM.DS ---
DS: Providers Provider Date of Service: 06/01/21 Primary care physician: Frieda Fisher MD DS: Summary Hospital Course Hospital Course: ADMITTING DIAGNOSIS: morbid obesit DISCHARGE DIAGNOSIS: same, s/p laparoscopic sleeve gastrectomy PAST SURGICAL HISTORY: lap bia PROCEDURE: upper endoscopy, laparoscopic sleeve gastrectomy DISCHARGE SUMMARY: History of Present Illness: The patient is a 41 year-old woman with a BMI of 45.2 kg/m2 and associated co-morbidities as described above. The patient had extensive work-up,lost 26.2 lbs preoperatively and was electively scheduled for laparoscopic, possible open sleeve gastrectomy and gastropexy. Risks and complications of the surgery were discussed with the patient in advance, particularly the possibility of , pulmonary embolism, anastomotic leak, bleeding, bowel injury, GERD, cardiac, renal or pulmonary complications. The patient understood all the risks and was in agreement with the surgical plan. Hospital Course: The patient underwent an uneventful laparoscopic sleeve gastrectomy with gastropexy on the day of admission. Postoperatively, the patient was transferred to the surgical floor. The patient received IV Acetaminophen and IV dilaudid for pain control. Patient was started on bariatric phase 1 diet POD #0. On postoperative day one, the patient was feeling well without nausea, vomiting, fevers, or tachycardia. The patient had some mild incisional pain and the abdomen was soft. On the morning of postoperative day one, the patient was continued on 1 ounce of water or ice every half hour. During the day, the patient did fairly well, having some incisional pain, but able to ambulate adequately and to tolerate liquids well. Since the patient is doing well, we decided that the patient was ready to be discharged. The patient was given instructions to follow-up with me next week and to call my office for any fever over 101, persistent abdominal pain, nausea, vomiting, GERD, symptoms of DVT such as calf tenderness, or leg swelling, or pulmonary embolism such as chest pain or shortness of breath. The patient was also instructed to drink 40-60 ounces of liquids per day using the 1-ounce cups. The patient had been given prescriptions for Tylenol for pain, Zofran prn for nausea, and pantoprazole and carafate previously. The patient was encouraged to ambulate and use the incentive spirometer. The patient was allowed to shower, but no baths, and encouraged to stay active at home. All of these instructions were given to the patient personally. All questions were answered and the patient understood all instructions, the instructions were also given to the patient in print. Time Spent with Patient Time attestation: Total time spent providing and/or coordinating discharge services: Discharge coordination time: Less than 30 minutes Quality: Stroke Does the patient have a stroke diagnosis?: No Physical Exam Vital Signs: Vital Signs: Last Vital Signs Temp 98.8 F 05/31/21 06:29 Pulse 71 05/31/21 06:29 Resp 16 05/31/21 06:29 BP 115/53 L 05/31/21 06:29 Pulse Ox 97 05/31/21 06:29 BMI result Body Mass Index 40.7 DS: Data Data Completed and Pending Pending studies at discharge: Pending at discharge 05/31/21 08:48 Surgical [PTH] Routine Labs on day of discharge: Laboratory Results - last 24 hr 05/31/21 05/31/21 06:10 06:15 Urine Test NEGATIVE COVID-19 ([facility]) Negative COVID-19 Clin Com See Note Discharge Plan Discharge Patient Disposition: Home, Self-Care Discharge Diagnosis: s/p Sleeve gastrectomy Referrals: Frieda Fisher MD [Primary Care Provider] - 1 Week Discharge Medications: Continued ondansetron HCl [Zofran] 4 mg tablet 4 mg PO Q12H Qty: 20 RF: 0 pantoprazole 40 mg tablet,delayed release (DR/EC) 40 mg PO DAILY Qty: 30 RF: 2 sucralfate 100 mg/mL suspension 10 ml PO BID Qty: 400 RF: 2 Discharge Orders: Discharge Order (Routine); Ordered 06/01/21 Ordered By: Leida Wright Diet: other Activity on Discharge: No heavy lifting Stand Alone Forms: Patient Portal Discharge page Care Plan Goals: weight loss Health Concerns: morbid obesity Plan of Treatment: No tub baths, sex or returning to work until discussed at first post op appointment. No exercise, alcohol, tobacco or illegal drug use. Continue to use incentive spirometer hourly while awake. Walk in home for 5- 10 minutes every 2 hours during the first week. Continue phase 1 diet today and start phase 2 diet tomorrow morning. Follow all instructions in the bariatric handbook and call with any questions. 1. Please call your doctor or come back to the emergency room should any new symptoms arise. 2. You will receive a courtesy call from [facility] [place] 24-48 hours after discharge. 3. Activity: abstain from alcohol, practice limited stair climbing, no bending, no driving, no exercise, no illicit substances, no lifting, no sex, no tub bath, no work. 4. Diet: continue as discussed with Dr. Landis. 5. Dressing Change/Wound Care: Do not change or remove surgical dressings unless they are wet or soiled. 6. Call your doctor if: - Your temperature exceeds 101.5 F - You experience excessive pain or swelling - You have an unexpected reaction to medication - You have excessive bleeding - You experience continued vomiting/nausea - Your incision begins to separate - Your incision shows signs of infection such as increased redness, swelling, excessive pain, heat, or drainage (light blood or clear fluid is normal) 7. General instructions: No lifting greater than 5 lbs for the next 4 weeks[address] driving within 24 hours of taking narcotic pain medications. If you do not move your bowels in the next 2 days, please take milk of magnesia over the counter. Please follow the post op diet and do not advance your diet until you are seen in the office in about 2 weeks. Please walk around your home every hour or two to prevent blood clots from forming in your legs. You do not need to wake from sleeping to walk. Please sleep in a bed or couch to prevent kinking at the hips and knees. Please take your incentive spirometer (your lung senior electrical engineer) home with you and use it for the next few days to prevent pneumonias. You may shower, no hot tubs, baths or swimming pools. Please call the office with any questions or concerns such as increasing abdominal pain, fever, chills, shortness of breath, chest pain, leg pain or swelling, or redness or drainage from your incisions. Do not hesitate to contact the office with any questions at . The patient's medical history has been reviewed and they are considered low risk for post op DVT and therefore DVT prophylaxis is not considered necessary. Travel after surgery was reviewed. The patient has not disclosed any travel plans during the first 30 days after surgery and they have been advised that within the first 30 days after surgery any bus, plane, train or car travel over 2 hours in duration is contraindicated due to the possibility of developing blood clots from immobility. Any travel, needs to include periods of ambulation of 10 minutes in duration every 2 hours. The patient was instructed to discuss any plans for travel during this period with their bariatric surgeon. Assessment: stable post op sleeve gastrectomy Discharge Date/Time: 06/01/21 14:27
--- NOTE | 2021-05-31 10:07 | P.BOP_ITS ---
Brief Operative Note Date of Service: 05/31/21 Pre-op diagnosis: Morbid obesity and comorbidities (see below) Post-op diagnosis: same Procedure: INITIAL PATIENT BMI ON PRESENTATION AT OUR OFFICE: 45.2 kg/m2 LAST BMI BEFORE SURGERY: 40.1 kg/m2 COMORBIDITIES: prediabetes, liver steatosis, GERD The patient participated in an intensive weekly lifestyle ?intervention and exercise program during which the patient ?has lost between the initial office visit and the last preoperative visit 30.4lbs, or 10.85% of initial actual body weight. The patient met the BMI-criteria for bariatric surgery based on the BMI on initial presentation. The patient should not be penalized for achieving such weight loss because ?it is not sustainable long-term without surgical intervention and it was achieved in preparation for bariatric surgery ?under my direction and based on my published research ([email or web address] and? [email or web address]/article/[email or web address])58030-X/pdf ) ?that a 10% preoperative weight loss improves long-term weight loss after surgery and reduces perioperative complications.? Insurance carriers such as [facility] have endorsed my recommendations ?and have included in their policies criteria to include a 10% preoperative weight loss requirement. PROCEDURE: Esophago-gastroscopy, laparoscopic sleeve gastrectomy and laparoscopic gastropexy INDICATIONS: This is a 41 year-old female who was electively scheduled for laparoscopic, possibly open sleeve gastrectomy. The risks and complications of the procedure were discussed with the patient in advance, particularly the possibility of ; pulmonary embolism; staple line leak; bleeding; GERD; cardiac, pulmonary, or renal complications; as well as long-term problems such as insufficient weight loss, vitamin deficiency, strictures, or ulcers. The patient understood all the risks, and was in agreement to proceed with surgery. DESCRIPTION OF PROCEDURE: After informed consent was obtained from the patient, the patient was given preoperative antibiotics, and was transferred to the operating room. After successful induction of general anesthesia, pneumatic compressive devices were placed on both lower extremities. An upper endoscopy was performed next. The oropharynx and esophagus appeared to be within normal limits. There was no diaphragmatic hernia present consistent with the findings of the preoperative upper GI. The stomach was entered. Then after all fluid and air were suctioned and the stomach was fully decompressed, the scope was withdrawn and secured in the mid esophagus. The patient was then prepped and draped in the usual sterile manner, and abdominal access was established at the right upper quadrant with the Angela technique. A 12 mm blunt port was inserted, and the abdomen was insufflated with CO2 to a pressure of 15 mmHg. Under direct visualization, additional ports were placed, specifically two 5 mm Versi-step ports to the left upper quadrant, and a 5 mm Versi-Step port to the right upper quadrant. 1% lidocaine plain was used to infiltrate all port sites as well as all fascia defects. Using the EndoClose suture passer device, I placed a #1 Polysorb tie across the falciform ligament in order to retract it up against the abdominal wall and prevent injury of the ligament with our instruments during the procedure. Following that, the patient was placed in a steep reverse Trendelenburg position. An additional 5 mm port was placed to the right flank for the Mediflex retractor that was used to retract the left lobe of the liver. The gastro-esophageal fat pad was opened with the ultrasonic device (Thunderbeat, Olympus) and the anterior esophagus and hiatus were exposed. The angle of His was opened with the ultrasonic device the fundus of the stomach from any diaphragmatic and splenic attachments. I then opened the gastrocolic ligament between the transverse colon and the greater curvature of the stomach with the ultrasonic device to enter the lesser sac and facilitate the ligation of the short gastric vessels. I started at a mid-point along the greater curvature and using the Thunderbeat, all short gastric vessels were divided all the way to the angle of His until the left pete was completely dissected at its entirety. I then divided the gastro-colic ligament distally to a distance of about 3-4 cm proximal to the esophagus. The stomach was then divided transversely with one Endo INDIA-45 purple, one INDIA- 60 purple and four INDIA-60 articulating orange loads using the AEON stapler and loads. Every effort was made that the gastric sleeve had a tubular shape and an even caliber throughout. Once the sleeve resection was completed, the staple line of the gastric sleeve was reinforced with Hemoclips. The resected stomach was retrieved without difficulty from the Angela port. A gastropexy was then performed in order to prevent postoperative GERD and partial gastric volvulus. Several interrupted 2.0 Surgidac sutures were placed between the sleeve's staple line and the previously divided greater omentum and gastro-colic ligament using the Endo-Stitch device. ?An upper endoscopy was performed. There was no narrowing at the GE junction. The scope was easily advanced all the way to the pylorus which was clearly visualized. There was no narrowing anywhere and the sleeve's caliber was even throughout. The sleeve's staple line was inspected and there was no evidence of ischemia, bleeding or dehiscence. At that point the gastroscope was withdrawn from the patient?s mouth while we were decompressing the bowel and the stomach from any remaining air. I looked into the lesser sac to see how the sleeve was situating and it was situating well. There was no bleeding from the staple line, spleen, or short gastric vessels. The Mediflex retractor was removed, and the undersurface of the liver was inspected and there was no bleeding. The patient was placed in supine position. I closed the fascial defect of the 12 mm port site with a figure of eight #1 Polysorb suture. Then 100 cc 0.25 % Marcaine plain with 10 mg of Dexamethasone were used to infiltrate the fascial closure as well as all skin incisions. At this point, the abdomen was deflated, all ports were removed under direct vision, and no bleeding was noted from any of the port sites. The skin incisions were irrigated with saline and were closed with 4-0 absorbable monofilament sutures. Steri-Strips and OpSites were used to cover all incisions. The patient was extubated and was transferred in stable condition to the recovery room for further care. I was present and performed all marks parts of the procedure. Ms. Wright was the first officer. There were no residents to assist with this case. José Luis Landis MD, PhD, FACS Surgeon: Curt Landis MD Anesthesia: GETA, local and other (TAP block) Was an Bulk Coolers Installer used for this Procedure?: Yes Bulk Coolers Installer: Leida Wright Estimated blood loss (mL): 10 IV fluids (mL): 2,600 Urine output (mL): 0 (No Lim to record) Pathology: other (Stomach) Condition: stable Disposition: PACU
--- NOTE | 2021-05-31 10:11 | PM.PNGS ---
Subjective Subjective Date of Service: 06/01/21 Interval history: Patient has mild incisional pain, but was able to ambulate and use the incentive spirometer. She is tolerating phase 1 bariatric diet Physical Exam Vital Signs: Vital Signs: Last Vital Signs Temp 100 F 05/31/21 10:02 Pulse 72 05/31/21 10:02 Resp 14 05/31/21 10:02 BP 147/87 H 05/31/21 10:02 Pulse Ox 99 05/31/21 10:02 BMI result Body Mass Index 40.7 GI: Inspection: Yes normal to inspection, Yes incision (clean, dry and intact) and Yes obesity Extrem: Right lower extremity: normal to inspection (no calf tenderness) Left lower extremity: normal to inspection (no calf tenderness) Objective Data Active Medications Fentanyl (Fentanyl Citrate/Pf 100 Mcg/2 Ml Vial) 25 mcg IVPUSH Q5M PRN; Protocol PRN Reason: Pain, Moderate (Pain Scale 4-6 Hydromorphone HCl (Hydromorphone Hcl 0.5 Mg/0.5 Ml Syringe) 0.25 mg IVPUSH Q5M PRN; Protocol PRN Reason: Pain, Severe (Pain Scale 7-10) Lactated Ringer's (Lr) 1,000 mls @ 100 mls/hr IVCONT .Q10H [place] Promethazine HCl 6.25 mg/ (Sodium Chloride) 50.25 mls @ 201 mls/hr IV ONCE PRN PRN Reason: Nausea and Vomiting Ondansetron HCl (Ondansetron Hcl 4 Mg/2 Ml Vial) 4 mg IVPUSH ONCE PRN PRN Reason: Nausea and Vomiting Labs CBC & Chem 7: 06/01/21 05:27 06/01/21 05:27 Labs: Laboratory Results - last 24 hr 05/31/21 05/31/21 06:10 06:15 Urine Test NEGATIVE COVID-19 ([facility]) Negative COVID-19 Clin Com See Note Procedures Date of Service Date of Service: 06/01/21 Progress Note: A&P Assessment and plan (1) S/P laparoscopic sleeve gastrectomy: Status: Acute Assessment and Plan: s/p laparoscopic sleeve gastrectomy and gastropexy Doing well Check am labs. If OK, will discharge home? (2) Morbid obesity: Status: Acute (3) Steatosis, liver: Status: Acute (4) GERD (gastroesophageal reflux disease): Status: Acute Fall Risk Details Current Medications: Current Medications Fentanyl (Fentanyl Citrate/Pf 100 Mcg/2 Ml Vial) 25 mcg IVPUSH Q5M PRN; Protocol PRN Reason: Pain, Moderate (Pain Scale 4-6 Hydromorphone HCl (Hydromorphone Hcl 0.5 Mg/0.5 Ml Syringe) 0.25 mg IVPUSH Q5M PRN; Protocol PRN Reason: Pain, Severe (Pain Scale 7-10) Lactated Ringer's (Lr) 1,000 mls @ 100 mls/hr IVCONT .Q10H [place] Promethazine HCl 6.25 mg/ (Sodium Chloride) 50.25 mls @ 201 mls/hr IV ONCE PRN PRN Reason: Nausea and Vomiting Ondansetron HCl (Ondansetron Hcl 4 Mg/2 Ml Vial) 4 mg IVPUSH ONCE PRN PRN Reason: Nausea and Vomiting Time Spent With Patient Time: Total time spent is greater than 50% in coordination of care (as documented) at patient's floor/unit and/or counseling patient: Time with patient: less than 15 minutes Quality Stroke Does the patient have a stroke diagnosis?: No VTE Prior VTE?: No VTE Risk Level:: Surgical - moderate VTE Device Contraindication: N/A - Device Ordered VTE Drug Contraindication: Treatment Not Indicated
[2021-05-31] MEDS: Famotidine/PF 20 MG/2 ML VIAL IVPUSH ×2 (10:20→21:03)
[2021-05-31] MEDS: Lactated Ringers 1,000 ML 100 ML IVCONT ×2 (10:29→23:34)
[2021-05-31 10:37] LABS: Hematocrit 44.2 % (37.0-47.0); Hemoglobin 14.1 g/dl (12.0-16.0)
[2021-05-31 10:50] LABS: Anion Gap 14 (12-20); Blood Urea Nitrogen 7 mg/dL (9-16); Carbon Dioxide 21 mmol/L (22-29); Chloride 108 mmol/L (96-108); Creatinine Clr Calc Pharmacy 125.5; Estimated Glomerular Filt Rate > 60; Glucose Random 114 mg/dL (60-115); Sodium 139 mmol/L (135-145)
[2021-05-31] MEDS: Metoclopramide HCl 10 MG/2 ML VIAL IVPUSH (13:27)
[2021-05-31] MEDS: Haloperidol Lactate 5 MG/ML VIAL 1 MG IV (16:12)
[2021-06-01] VITALS: BP 122/65; PULSE 68; RESP 18; TEMP 37; O2SAT 98
[2021-06-01 03:50] VITALS: BP 126/67; PULSE 60; RESP 18; TEMP 36.7; O2SAT 94
[2021-06-01 05:41] LABS: MANUAL DIFF FLAG NO
[2021-06-01 05:43] LABS: Basophils Percent Auto 0.4 % (0-2); Eosinophils Percent Auto 0.1 % (0-4); Hematocrit 39.3 % (37.0-47.0); Hemoglobin 12.7 g/dl (12.0-16.0); Imm Gran Abs Auto 0.03 X10*3/uL (0.00-0.03); Imm Gran Pct Auto 0.3 % (0.0-0.4); Lymphocytes Percent Auto 10.8 % (20-40); Mean Corpuscular HGB Conc 32.3 g/dl (31.0-35.0); Mean Corpuscular Hemoglobin 27.3 pg (27.0-33.0); Mean Corpuscular Volume 84.3 fL (80.0-98.0); Mean Platelet Volume 11.4 fL (9.4-12.3); Monocytes Absolute Auto 0.7 X10*3/uL (0.1-1.2); Monocytes Percent Auto 7.4 % (2-11); Neutrophils Absolute Auto 7.3 x10*3/uL (2.0-8.3); Platelet Count 237 X10*3/uL (160-400); Red Blood Count 4.66 X10*6/uL (4.20-5.50); Red Cell Distribution Width 12.8 % (11.0-16.0)
[2021-06-01 06:02] LABS: Anion Gap 12 (12-20); Blood Urea Nitrogen 7 mg/dL (9-16); Calcium 8.5 mg/dL (8.4-10.2); Carbon Dioxide 23 mmol/L (22-29); Chloride 107 mmol/L (96-108); Creatinine Clr Calc Pharmacy 144.8; Estimated Glomerular Filt Rate > 60; Glucose Random 107 mg/dL (60-115); Potassium 3.8 mmol/L (3.3-5.1); Sodium 138 mmol/L (135-145)
[2021-06-01] MEDS: ondansetron HCL 4 MG/2 ML VIAL IVPUSH (07:55)
[2021-06-01] MEDS: 0.9 % Sodium Chloride Flush 3 ML SYRINGE IVFLUSH (07:56)
[2021-06-01 08:00] VITALS: BP 143/71; PULSE 56; RESP 18; TEMP 36.8; O2SAT 97
[2021-06-01] MEDS: Famotidine/PF 20 MG/2 ML VIAL IVPUSH (09:21)
[2021-06-01] MEDS: Lactated Ringers 1,000 ML 100 ML IVCONT (09:22)
--- NOTE | 2021-06-01 09:29 | MHC.CM.PN ---
CM MET WITH PT WHO REPORTS SHE LIVES WITH HER AND THREE CHILDREN SHE REPORTS SHE IS INDEPENDENT WITH ALL CARE AND MOBILITY PT DENIES USING DME OR HOME/COMMUNITY SERVICES PT CONFIRMS HER PCP IS JORGE SWANSON PT COMPLETED A HCP TODAY NAMING HER DAUGHTER, HOLLY [phone], AND HER , ANNALISA [phone], HER PRIMARY AND ALTERNATE AGENTS RESPECTIVELY PT WILL DC HOME TODAY CURRENT PLAN IS TO DC WITHOUT SERVICES FAMILY TO TRANSPORT
[2021-06-01] MEDS: Metoclopramide HCl 10 MG/2 ML VIAL IVPUSH (12:15)
--- NOTE | 2021-06-01 15:07 | HO.POSTANES ---
Post Anesthesia Evaluation Post Anesthesia Evaluation Vital Signs: Vital Signs Temp Pulse Resp BP Pulse Ox 06/01/21 08:00 98.2 F 56 18 143/71 H 97 06/01/21 03:50 98.1 F 60 18 126/67 94 Anesthesia: General Endotracheal-GETA Mental Status: Awake Pain Control: Satisfactory Nausea/Vomiting: None Hydration: Adequate Anesthesia-Related Issues: No Anes. Related Issues
== END 2021-06-01 14:27 | disposition home or self-care (01) | DRG 403 ==
LOC: HO.SSSA 10:07 → HO.S3 16:29
PROVIDERS: Nurse Practitioner; Physician Assistant; Admitting Provider Surgery; PCP Family Medicine; Visit Provider Surgery
PROC: 0DB64Z3 Excision of Stomach, Percutaneous Endoscopic Approach, Vertical (ICD-10-PCS; CPT 43845; principal; 2021-05-31 07:30)
DX: E66.01 Morbid (severe) obesity due to excess calories (principal); K76.0 Fatty (change of) liver, not elsewhere classified; Z68.41 Body mass index [BMI] 40.0-44.9, adult; K21.9 Gastro-esophageal reflux disease without esophagitis; R73.03 Prediabetes; Z20.822 Contact with and (suspected) exposure to COVID-19; Z79.899 Other long term (current) drug therapy
CPT/HCPCS: 36415; 80048; 81025; 85014; 85018; 85025; 86850; 86900; 86901; 87635; 88307; 88342; 99024; A4649; J0131; J0690; J1100; J1170; J2250; J2405; J2550; J2765; J3010

== ENCOUNTER → 2021-06-06 07:27 | Outpatient (BNVA) | payer OTHER, SELFPAY | PROVIDERS: PCP Family Medicine; Referring Provider Family Medicine; Visit Provider Surgery | DX: E66.9 Obesity, unspecified (principal); Z68.38 Body mass index [BMI] 38.0-38.9, adult | CPT/HCPCS: 99212 ==

== ENCOUNTER → 2021-07-09 07:57 | Outpatient (BNVA) | payer OTHER, SELFPAY | PROVIDERS: PCP Family Medicine; Visit Provider Physician Assistant Surgical | DX: E66.9 Obesity, unspecified (principal); K59.00 Constipation, unspecified; Z68.35 Body mass index [BMI] 35.0-35.9, adult | CPT/HCPCS: 99212 ==

== ENCOUNTER → 2021-08-13 09:09 | Outpatient (BNVA) | payer OTHER, SELFPAY | PROVIDERS: PCP Family Medicine; Visit Provider Physician Assistant Surgical | DX: E66.9 Obesity, unspecified (principal); Z68.33 Body mass index [BMI] 33.0-33.9, adult; K59.00 Constipation, unspecified | CPT/HCPCS: 99212 ==

== ENCOUNTER → 2021-09-11 08:28 | Outpatient (BNVA) | payer OTHER, SELFPAY | PROVIDERS: PCP Family Medicine; Referring Provider Surgery; Visit Provider Physician Assistant Surgical | DX: E66.9 Obesity, unspecified (principal); Z68.31 Body mass index [BMI] 31.0-31.9, adult | CPT/HCPCS: 99212 ==

== ENCOUNTER → 2021-10-24 16:23 | Outpatient (BNVA) | payer OTHER, SELFPAY | PROVIDERS: PCP Family Medicine; Referring Provider Family Medicine; Visit Provider Physician Assistant Surgical | DX: E66.9 Obesity, unspecified (principal); Z68.30 Body mass index [BMI] 30.0-30.9, adult | CPT/HCPCS: 99212 ==

== ENCOUNTER 2021-11-20 16:09 | Outpatient (REF) | payer OTHER, SELFPAY ==
[2021-11-20 17:09] LABS: MANUAL DIFF FLAG NO
[2021-11-20 17:29] LABS: Basophils Percent Auto 0.8 % (0-2); Eosinophils Absolute Auto 0.1 X10*3/uL (0.0-0.4); Eosinophils Percent Auto 1.7 % (0-4); Hematocrit 36.2 % (37.0-47.0); Hemoglobin 11.5 g/dl (12.0-16.0); Imm Gran Abs Auto 0.01 X10*3/uL (0.00-0.03); Imm Gran Pct Auto 0.2 % (0.0-0.4); Lymphocytes Absolute Auto 1.8 X10*3/uL (1.2-4.9); Lymphocytes Percent Auto 38.4 % (20-40); Mean Corpuscular HGB Conc 31.8 g/dl (31.0-35.0); Mean Corpuscular Hemoglobin 25.7 pg (27.0-33.0); Mean Corpuscular Volume 80.8 fL (80.0-98.0); Mean Platelet Volume 11.3 fL (9.4-12.3); Monocytes Absolute Auto 0.3 X10*3/uL (0.1-1.2); Neutrophils Absolute Auto 2.5 x10*3/uL (2.0-8.3); Neutrophils Percent Auto 51.9 % (45-73); Platelet Count 213 X10*3/uL (160-400); Red Blood Count 4.48 X10*6/uL (4.20-5.50); Red Cell Distribution Width 14.1 % (11.0-16.0); White Blood Count 4.7 X10*3/uL (4.8-10.8)
[2021-11-20 17:54] LABS: Anion Gap 11 (12-20); Blood Urea Nitrogen 15 mg/dL (9-16); Carbon Dioxide 26 mmol/L (22-29); Chloride 107 mmol/L (96-108); Cholesterol 157 mg/dL; Estimated Glomerular Filt Rate > 60; Glucose Random 89 mg/dL (60-115); HDL Cholesterol 55 mg/dL; Iron 24 mcg/dL (30-160); LDL Cholesterol Calculated 92 mg/dl; Percent Iron Saturation 7 % (15-50); Potassium 3.7 mmol/L (3.3-5.1); Sodium 140 mmol/L (135-145); Total Iron Binding Capacity 366 mcg/dL (228-428); Triglycerides 52 mg/dL; Unsaturated Iron Binding 342 ug/dL
[2021-11-20 18:16] LABS: Ferritin 10 ng/mL (10-250); TSH reflex Free T4 0.77 uIU/mL (0.32-4.0); Vitamin D 25-OH Total 39.2 ng/mL (>30)
[2021-11-21 07:04] LABS: Folate > 20.0 ng/mL (> or = 4.0); Vitamin B12 593 pg/mL (200-900)
[2021-11-21 15:35] LABS: Calcium (PTHI) 9.2 mg/dL (8.6-10.2); PTHI 58 pg/mL (16-77)
[2021-11-23 20:07] LABS: Zinc 73 mcg/dL (60-130)
[2021-11-25 12:51] LABS: Vitamin B1 14 nmol/L (8-30)
[2021-11-27 01:06] LABS: Vitamin A 32 mcg/dL (38-98)
== END 2021-11-20 16:10 | disposition home or self-care (01) ==
LOC: HO.LAB 16:09
PROVIDERS: PCP Family Medicine; Visit Provider Physician Assistant Surgical
DX: E66.3 Overweight (principal)
CPT/HCPCS: 36415; 80048; 80061; 82306; 82607; 82728; 82746; 83540; 83970; 84425; 84443; 84590; 84630; 85025; 99212

== ENCOUNTER → 2022-03-06 14:57 | Outpatient (BNVA) | payer OTHER, SELFPAY | PROVIDERS: PCP Family Medicine; Referring Provider Family Medicine; Visit Provider Physician Assistant Surgical | DX: E66.3 Overweight (principal); Z98.84 Bariatric surgery status; Z68.26 Body mass index [BMI] 26.0-26.9, adult | CPT/HCPCS: 99212 ==

== ENCOUNTER → 2022-05-01 16:25 | Outpatient (BNVA) | payer OTHER, SELFPAY | PROVIDERS: PCP Family Medicine; Visit Provider Physician Assistant Surgical | DX: E66.3 Overweight (principal); L98.7 Excessive and redundant skin and subcutaneous tissue; Z98.84 Bariatric surgery status; Z68.26 Body mass index [BMI] 26.0-26.9, adult | CPT/HCPCS: 99212 ==

== ENCOUNTER 2022-06-01 07:09 | Outpatient (REF) | payer OTHER, SELFPAY ==
[2022-06-01 07:36] LABS: MANUAL DIFF FLAG NO
[2022-06-01 08:20] LABS: Basophils Absolute Auto 0.1 X10*3/uL (0.0-0.2); Basophils Percent Auto 1.5 % (0-2); Eosinophils Absolute Auto 0.1 X10*3/uL (0.0-0.4); Hematocrit 36.3 % (37.0-47.0); Hemoglobin 11.8 g/dl (12.0-16.0); Lymphocytes Absolute Auto 1.8 X10*3/uL (1.2-4.9); Lymphocytes Percent Auto 44.9 % (20-40); Mean Corpuscular HGB Conc 32.5 g/dl (31.0-35.0); Mean Corpuscular Hemoglobin 26.7 pg (27.0-33.0); Mean Corpuscular Volume 82.1 fL (80.0-98.0); Mean Platelet Volume 10.8 fL (9.4-12.3); Monocytes Absolute Auto 0.3 X10*3/uL (0.1-1.2); Monocytes Percent Auto 6.5 % (2-11); Neutrophils Absolute Auto 1.8 x10*3/uL (2.0-8.3); Neutrophils Percent Auto 45.1 % (45-73); Platelet Count 235 X10*3/uL (160-400); Red Blood Count 4.42 X10*6/uL (4.20-5.50); Red Cell Distribution Width 13.5 % (11.0-16.0)
[2022-06-01 08:35] LABS: Estimated Average Glucose 97 mg/dL
[2022-06-01 09:09] LABS: Alanine Aminotransferase 10 U/L (0-31); Albumin Level 3.7 g/dL (3.5-5.0); Alkaline Phosphatase 75 U/L (39-117); Anion Gap 12 (12-20); Aspartate Amino Transferase 18 U/L (5-31); Blood Urea Nitrogen 10 mg/dL (9-16); C Reactive Protein < 0.10 mg/dL (< or = 0.50); Carbon Dioxide 27 mmol/L (22-29); Chloride 105 mmol/L (96-108); Cholesterol 173 mg/dL; Estimated Glomerular Filt Rate > 60; Ferritin 7 ng/mL (10-250); Glucose Random 87 mg/dL (60-115); HDL Cholesterol 73 mg/dL; Insulin 2 uU/mL (2-29); Iron 42 mcg/dL (30-160); LDL Cholesterol Calculated 90 mg/dl; Percent Iron Saturation 12 % (15-50); Potassium 4.3 mmol/L (3.3-5.1); Sodium 140 mmol/L (135-145); TSH reflex Free T4 1.32 uIU/mL (0.32-4.0); Total Iron Binding Capacity 346 mcg/dL (228-428); Total Protein 6.5 g/dL (6.5-8.0); Triglycerides 52 mg/dL; Unsaturated Iron Binding 304 ug/dL; Vitamin D 25-OH Total 37.1 ng/mL (>30)
[2022-06-01 09:19] LABS: Folate 18.3 ng/mL (> or = 4.0); Vitamin B12 649 pg/mL (200-900)
[2022-06-03 23:28] LABS: Calcium (PTHI) 9.5 mg/dL (8.6-10.2); PTHI 51 pg/mL (16-77)
[2022-06-05 12:43] LABS: Zinc 76 mcg/dL (60-130)
[2022-06-05 21:18] LABS: Vitamin A 45 mcg/dL (38-98)
[2022-06-06 14:03] LABS: Vitamin B1 17 nmol/L (8-30)
== END 2022-06-01 07:10 | disposition home or self-care (01) ==
LOC: HO.LAB 07:09
PROVIDERS: PCP Family Medicine; Visit Provider Physician Assistant Surgical
DX: Z98.84 Bariatric surgery status (principal)
CPT/HCPCS: 36415; 80053; 80061; 82306; 82607; 82728; 82746; 83036; 83525; 83540; 83970; 84425; 84443; 84590; 84630; 85025; 86140

== ENCOUNTER → 2022-06-05 15:15 | Outpatient (BNVA) | payer OTHER, SELFPAY | PROVIDERS: PCP Family Medicine; Visit Provider Physician Assistant Surgical | DX: E66.3 Overweight (principal); Z68.26 Body mass index [BMI] 26.0-26.9, adult; L98.7 Excessive and redundant skin and subcutaneous tissue; Z98.84 Bariatric surgery status | CPT/HCPCS: 99212 ==

== ENCOUNTER → 2022-07-09 14:33 | Outpatient (BNVA) | payer OTHER, SELFPAY | PROVIDERS: PCP Family Medicine; Visit Provider Physician Assistant Surgical | DX: E66.3 Overweight (principal); Z68.26 Body mass index [BMI] 26.0-26.9, adult; L98.7 Excessive and redundant skin and subcutaneous tissue; M79.3 Panniculitis, unspecified; Z98.84 Bariatric surgery status | CPT/HCPCS: 99212 ==

== ENCOUNTER → 2022-11-04 14:31 | Outpatient (BNVA) | payer OTHER, SELFPAY | PROVIDERS: PCP Family Medicine; Visit Provider Physician Assistant Surgical | DX: E66.3 Overweight (principal); Z68.28 Body mass index [BMI] 28.0-28.9, adult; L98.7 Excessive and redundant skin and subcutaneous tissue; Z98.84 Bariatric surgery status | CPT/HCPCS: 99212 ==

== ENCOUNTER 2023-01-04 09:25 | Outpatient (REF) | payer OTHER, SELFPAY ==
[2023-01-04 09:43] LABS: MANUAL DIFF FLAG NO
[2023-01-04 10:20] LABS: Basophils Percent Auto 1.2 % (0-2); Eosinophils Absolute Auto 0.1 X10*3/uL (0.0-0.4); Eosinophils Percent Auto 1.8 % (0-4); Hematocrit 35.3 % (37.0-47.0); Imm Gran Abs Auto 0.01 X10*3/uL (0.00-0.03); Imm Gran Pct Auto 0.3 % (0.0-0.4); Lymphocytes Absolute Auto 1.4 X10*3/uL (1.2-4.9); Lymphocytes Percent Auto 42.3 % (20-40); Mean Corpuscular HGB Conc 31.2 g/dl (31.0-35.0); Mean Corpuscular Hemoglobin 24.3 pg (27.0-33.0); Mean Corpuscular Volume 78.1 fL (80.0-98.0); Mean Platelet Volume 11.8 fL (9.4-12.3); Monocytes Absolute Auto 0.2 X10*3/uL (0.1-1.2); Monocytes Percent Auto 6.5 % (2-11); Neutrophils Absolute Auto 1.6 x10*3/uL (2.0-8.3); Neutrophils Percent Auto 47.9 % (45-73); Platelet Count 242 X10*3/uL (160-400); Red Blood Count 4.52 X10*6/uL (4.20-5.50); White Blood Count 3.4 X10*3/uL (4.8-10.8)
[2023-01-04 10:34] LABS: Estimated Average Glucose 100 mg/dL; Hemoglobin A1c % 5.1 %
[2023-01-04 10:47] LABS: Alanine Aminotransferase 9 U/L (0-31); Albumin Level 3.7 g/dL (3.5-5.0); Alkaline Phosphatase 52 U/L (39-117); Anion Gap 12 (12-20); Aspartate Amino Transferase 16 U/L (5-31); Bilirubin Total 0.7 mg/dL (0.0-1.0); Blood Urea Nitrogen 16 mg/dL (9-16); C Reactive Protein < 0.10 mg/dL (< or = 0.50); Calcium 9.3 mg/dL (8.4-10.2); Carbon Dioxide 25 mmol/L (22-29); Chloride 108 mmol/L (96-108); Cholesterol 145 mg/dL; Estimated Glomerular Filt Rate > 60; Glucose Random 98 mg/dL (60-115); HDL Cholesterol 66 mg/dL; Iron 23 mcg/dL (30-160); LDL Cholesterol Calculated 69 mg/dl; Percent Iron Saturation 7 % (15-50); Potassium 3.8 mmol/L (3.3-5.1); Sodium 141 mmol/L (135-145); Total Iron Binding Capacity 324 mcg/dL (228-428); Total Protein 6.6 g/dL (6.5-8.0); Triglycerides 51 mg/dL; Unsaturated Iron Binding 301 ug/dL
[2023-01-04 11:03] LABS: Ferritin 5 ng/mL (10-250); Insulin 5 uU/mL (2-29); TSH reflex Free T4 0.95 uIU/mL (0.32-4.0); Vitamin D 25-OH Total 41.1 ng/mL (>30)
[2023-01-04 11:15] LABS: Folate 15.2 ng/mL (> or = 4.0); Vitamin B12 619 pg/mL (200-900)
[2023-01-07 17:48] LABS: PTHI 35 pg/mL (16-77)
[2023-01-08 02:33] LABS: Zinc 81 mcg/dL (60-130)
[2023-01-09 03:33] LABS: Vitamin A 46 mcg/dL (38-98)
[2023-01-12 10:28] LABS: Vitamin B1 10 nmol/L (8-30)
== END 2023-01-04 09:26 | disposition home or self-care (01) ==
LOC: HO.LAB 09:25
PROVIDERS: PCP Nurse Practitioner Family; Visit Provider Physician Assistant Surgical
DX: Z98.84 Bariatric surgery status (principal)
CPT/HCPCS: 36415; 80053; 80061; 82306; 82607; 82728; 82746; 83036; 83525; 83540; 83970; 84425; 84443; 84590; 84630; 85025; 86140

== ENCOUNTER 2023-01-14 14:59 | Outpatient (AMB) | payer OTHER, SELFPAY ==
--- NOTE | 2023-01-14 15:54 | MHC.OFFVISWM ---
Intake VS Expanded 01/14/23 15:57 Height 5 ft 6 in Weight 170 lb 9.6 oz BMI 27.5 BP 113/58 L Blood Pressure Location Rt brachial Blood Pressure Position Sitting Pulse 61 Pulse Source Pulse Oximeter Temp 97.2 F Temperature Source Temporal Artery Scan Pulse Oximetry 99 Oxygen Delivery Method Room Air Body Fat 58.4 Body Fat Percentage 34.3 Free Fat Mass 112.0 Muscle Mass 106.2 Visceral Mass 6.0 Water Mass 80.0 BMR 1,525 Intake Visit Reasons: (OV) PO LSG 05/31/2021 Allergies No Known Allergies [No Known Allergies*] Allergy (Verified 01/14/23 15:55) Medication List - Last Reconciled 01/14/23 by MILADY Chino [celebrate Marcelino+D PO BID] [celebrate mvi PO DAILY] clotrimazole 1% 1 appl topical BID inulin (Fiber Gummies) grams PO HPI HPI Comments History of Present Illness Details This?is a?42?yo female who is s/p LSG 05/31/2021. Presents for 18 month post op visit. Weight at last visit on 11/04/2022 was 174.2 pounds with a BMI of 28.1, weight today is 170.6 pounds, representing a 3.6 pound weight loss with a BMI today of 27.5.? No complaints of nausea, emesis, abdominal pain or reflux, or constipation. Present meal plan includes: Two options for plans with adequate protein intake: Two Fairlife shakes and one protein bar One Fairlife shake, one protein water, one bar, one small meal 2oz protein Pt doing much better getting adequate protein intake, being consistent on plan. Exercise routine includes: no formal routine recently but plans to restart this week with daughter Continues to have issues with excess skin of abdomen and upper thighs. Ongoing rashes in skin fold of abdomen and skin will open up and bleed. Using clotrimazole ointment for open areas which does help somewhat, but does not completely resolve the issue. Notices moisture collecting in the skin fold of abdomen, which smells unpleasant and she has to shower twice a day or more, and frequently clean. She has to wear compression pants/shorts with a tight waistband to hold excess skin in place to prevent movement. Regarding thighs, she experiences chafing of the inner thighs when skin rubs together. This has worsened over the summer due to increased sweating. Has to wear compressive shorts/clothing/girdle type garment to help hold the skin of thighs in place. Skin bounces around during exercise or walking which is very uncomfortable and limits full range of motion. She has two physical jobs (childcare, elder care) so excess skin gets in the way of typical job duties where she is active. Due to worsening rashes, pt has been prescribed 2 courses of PO fluconazole in the past year. [facility] Medical History Adjustment disorder, unspecified Arthritis BMI 45.0-49.9, adult COVID-19 vaccine series completed GERD (gastroesophageal reflux disease) History of adenoid cystic carcinoma Morbid obesity Nausea Pre-diabetes Steatosis, liver Torn meniscus Surgical History Hx laparoscopic cholecystectomy Hx of tonsillectomy Hx of wisdom tooth extraction S/P laparoscopic sleeve gastrectomy Family History Mother COVID-19 Sister No problems noted. Sister No problems noted. Sister No problems noted. Son No problems noted. Daughter No problems noted. Daughter No problems noted. Brother Crohn disease Brother No problems noted. Brother No problems noted. Father COVID-19 Crohn disease Social History Household Members: Spouse and Children Housing: House Are you a primary intensive care ambulance paramedic to a significant other at home: No Do you presently have visiting nurse or other home services: No Alcohol intake: current Alcohol intake frequency: holidays/special occasions only Patient Tobacco Use Status: Never used Tobacco service: No Physical Exam Vital Signs: Last Vital Signs Temp 97.2 F 01/14/23 15:57 Pulse 61 01/14/23 15:57 BP 113/58 L 01/14/23 15:57 Pulse Ox 99 01/14/23 15:57 Oxygen Delivery Method Room Air 01/14/23 15:57 BMI result Body Mass Index 27.5 Const General: cooperative, comfortable and no acute distress Orientation/consciousness: patient oriented x3 GI Other: soft, nontender, no hernia, incisions well healed Grade III pannus with evidence of previously healed rashes in skin fold Skin Other: bilateral upper thighs with continuous contact when feet together; multiple skin folds present medially; previous healed areas of chafing noted Neuro General: patient oriented x3 Assessment & Plan Assessment & Plan (1) Panniculitis: Code(s): M79.3 - Panniculitis, unspecified (2) Excess skin: Code(s): L98.7 - Excessive and redundant skin and subcutaneous tissue (3) Overweight: Code(s): E66.3 - Overweight (4) S/P laparoscopic sleeve gastrectomy: Code(s): Z98.84 - Bariatric surgery status Plan Labs reviewed, pt started on iron supplement. Encouraged pt to resume exercise to help facilitate additional weight loss. Photos taken today to submit to insurance for excess skin removal of abdomen and upper thighs. Pt has excess skin of abdomen which continues to result in ongoing painful and malodorous rashes refractory to both topical and oral antifungal treatments, and limiting her physical function and daily activities. She would benefit from definitive treatment of panniculectomy. Pt also has excess skin of upper thighs which causes painful chafing, and limiting her physical function and daily activities, including her job, and her ability to exercise which is essential to maintain her excellent weight loss. She would benefit from thighplasty. ? Patient is overweight and is not considered stable at this time. I spent a total of 30 minutes reviewing/updating records, examining the patient and counseling the patient on weight management as detailed above. Medications: New sennosides (senna) 8.6 mg PO DAILY 30 tabs 2RF iron,carbonyl-vitamin C 65 mg iron- 125 mg (Vitron-C) 1 tab PO BEDTIME 90 tabs 3RF Coding Level of Care Code Est Pt Level 4 (80752) Diagnoses Panniculitis M79.3 Excess skin L98.7 Overweight E66.3 S/P laparoscopic sleeve gastrectomy Z98.84
[2023-01-14 15:57] VITALS: BP 113/58; PULSE 61; TEMP 36.2; O2SAT 99; BMI 27.5
== END 2023-01-14 16:24 | disposition home or self-care (01) ==
PROVIDERS: PCP Family Medicine; Visit Provider Physician Assistant Surgical
DX: M79.3 Panniculitis, unspecified (principal); L98.7 Excessive and redundant skin and subcutaneous tissue; E66.3 Overweight; Z98.84 Bariatric surgery status
CPT/HCPCS: 99214

== ENCOUNTER → 2023-01-14 14:59 | Outpatient (BNVA) | payer OTHER, SELFPAY | PROVIDERS: PCP Family Medicine; Visit Provider Physician Assistant Surgical | DX: M79.3 Panniculitis, unspecified (principal); L98.7 Excessive and redundant skin and subcutaneous tissue; E66.3 Overweight; Z98.84 Bariatric surgery status; Z68.27 Body mass index [BMI] 27.0-27.9, adult | CPT/HCPCS: 99212 ==

== ENCOUNTER 2024-06-03 07:32 | Outpatient (REF) | payer OTHER, SELFPAY ==
--- NOTE | ~2024-06-03 | FL_ITS ---
EXAMINATION: XR FLUOROSCOPY UPPER GI WITH AIR CLINICAL INFORMATION: Status post sleeve gastrectomy. Weight gain. COMPARISON: Upper GI 2020 TECHNIQUE: Fluoroscopic air contrast upper GI examination was performed utilizing standard techniques with thin and thick barium and effervescent granules. Numerous spot images were obtained. FINDINGS: Dual and single contrast images of the esophagus demonstrate normal caliber, contour, and mucosal pattern. No evidence of stricture, mass, or ulcerations identified. Esophageal peristalsis was normal. No evidence of hiatus hernia identified. Mild gastroesophageal reflux is seen in the distal esophagus. Dual contrast and single contrast images of the stomach demonstrated post surgical changes consistent with prior history of sleeve gastrectomy. No masses or ulcerations are seen. Contrast freely passed into the gastric antrum and duodenal bulb without delay. Single and air-contrast images of the duodenal bulb demonstrate no abnormality. The duodenal sweep has a normal appearance, course, and mucosal fold appearance. The imaged proximal jejunum has a normal fold pattern and caliber. FLUOROSCOPY TIME: 3 minutes 16 seconds Number of Spot Images: 7 Number of Cine: 12 DOSE AREA PRODUCT: 2168 uGy-m2 (microgray-meter squared) FL/FL upper GI w air IMPRESSION: 1. Postsurgical changes consistent with prior history of sleeve gastrectomy. 2. Mild gastroesophageal reflux. This procedure was performed by Wallace Vasques PA-C, and supervised by Dr. Gore Electronically signed by: Praveen Gore MD 06/04/2024 04:38 PM [facility]
== END 2024-06-03 07:33 | disposition home or self-care (01) ==
LOC: HO.XRAY 07:32
PROVIDERS: PCP Family Medicine; Visit Provider Physician Assistant Surgical
DX: Z98.84 Bariatric surgery status (principal)
CPT/HCPCS: 74246

== ENCOUNTER → 2024-06-03 07:34 | Outpatient (BNV) | payer OTHER, SELFPAY | PROVIDERS: PCP Family Medicine; Visit Provider Physician Assistant Surgical | DX: K21.9 Gastro-esophageal reflux disease without esophagitis (principal); Z98.84 Bariatric surgery status; Z90.3 Acquired absence of stomach [part of] | CPT/HCPCS: 74246 ==

== ENCOUNTER 2024-06-08 08:18 | Outpatient (REF) | payer OTHER, SELFPAY ==
[2024-06-08 08:36] LABS: MANUAL DIFF FLAG NO
[2024-06-08 09:04] LABS: Basophils Absolute Auto 0.1 X10*3/uL (0.0-0.2); Basophils Percent Auto 1.6 % (0-2); Eosinophils Absolute Auto 0.2 X10*3/uL (0.0-0.4); Eosinophils Percent Auto 2.9 % (0-4); Hematocrit 38.8 % (37.0-47.0); Hemoglobin 11.8 g/dl (12.0-16.0); Imm Gran Abs Auto 0.02 X10*3/uL (0.00-0.03); Imm Gran Pct Auto 0.4 % (0.0-0.4); Lymphocytes Absolute Auto 1.7 X10*3/uL (1.2-4.9); Lymphocytes Percent Auto 32.3 % (20-40); Mean Corpuscular HGB Conc 30.4 g/dl (31.0-35.0); Mean Corpuscular Hemoglobin 24.2 pg (27.0-33.0); Mean Corpuscular Volume 79.7 fL (80.0-98.0); Mean Platelet Volume 10.4 fL (9.4-12.3); Monocytes Absolute Auto 0.4 X10*3/uL (0.1-1.2); Monocytes Percent Auto 7.6 % (2-11); Neutrophils Absolute Auto 2.8 x10*3/uL (2.0-8.3); Neutrophils Percent Auto 55.2 % (45-73); Platelet Count 214 X10*3/uL (160-400); Red Blood Count 4.87 X10*6/uL (4.20-5.50); Red Cell Distribution Width 15.1 % (11.0-16.0); White Blood Count 5.1 X10*3/uL (4.8-10.8)
[2024-06-08 09:13] LABS: Estimated Average Glucose 103 mg/dL; Hemoglobin A1C 100.7996 umol/L; Hemoglobin A1c % 5.2 % (<6.0); Total Hemoglobin (HGBA1C) 3022.0281 umol/L
[2024-06-08 09:21] LABS: Albumin Level 3.7 g/dL (3.5-5.0); Anion Gap 12 (12-20); Aspartate Amino Transferase 25 U/L (5-31); Bilirubin Total 0.3 mg/dL (0.0-1.0); Blood Urea Nitrogen 12 mg/dL (9-16); C Reactive Protein 0.21 mg/dL (< or = 0.50); Calcium 8.9 mg/dL (8.4-10.2); Carbon Dioxide 20 mmol/L (22-29); Chloride 112 mmol/L (96-108); Cholesterol 180 mg/dL (<200); Estimated Glomerular Filt Rate > 60; Glucose Random 98 mg/dL (60-115); HDL Cholesterol 79 mg/dL (>40); Iron 22 mcg/dL (30-160); LDL Cholesterol Calculated 88 mg/dL (<100); Percent Iron Saturation 6 % (15-50); Potassium 3.8 mmol/L (3.3-5.1); Sodium 140 mmol/L (135-145); Total Iron Binding Capacity 352 mcg/dL (228-428); Total Protein 6.8 g/dL (6.5-8.0); Triglycerides 66 mg/dL (<150); Unsaturated Iron Binding 330 ug/dL
[2024-06-08 09:47] LABS: Ferritin 23 ng/mL (10-250); Insulin 4 uU/mL (2-29); TSH reflex Free T4 2.18 uIU/mL (0.32-4.0); Vitamin D 25-OH Total 33.4 ng/mL (>30)
[2024-06-08 09:50] LABS: Alkaline Phosphatase 66 U/L (39-117)
[2024-06-08 09:54] LABS: Folate 13.7 ng/mL (> or = 4.0); Vitamin B12 503 pg/mL (200-900)
[2024-06-08 09:59] LABS: Alanine Aminotransferase 13 U/L (0-31)
[2024-06-11 09:44] LABS: Vitamin A 65 mcg/dL (38-98)
[2024-06-11 19:17] LABS: Zinc 72 mcg/dL (60-130)
[2024-06-15 13:54] LABS: Vitamin B1 23 nmol/L (8-30)
== END 2024-06-08 08:19 | disposition home or self-care (01) ==
LOC: HO.LAB 08:18
PROVIDERS: PCP Family Medicine; Visit Provider Physician Assistant Surgical
DX: Z98.84 Bariatric surgery status (principal); Z13.1 Encounter for screening for diabetes mellitus
CPT/HCPCS: 36415; 80053; 80061; 82306; 82607; 82728; 82746; 83036; 83525; 83540; 84425; 84443; 84590; 84630; 85025; 86140

== ENCOUNTER 2024-08-05 12:32 | Outpatient (AMB) | payer OTHER, SELFPAY ==
--- NOTE | 2024-08-05 12:07 | MHC.OFFVISWM ---
VS Expanded 08/05/24 12:08 Height 5 ft 6 in Weight 221 lb BMI 35.7 Intake Visit Reasons: TELEPHONE PO LSG 05/31/21 Allergies No Known Allergies [No Known Allergies*] Allergy (Verified 01/14/23 15:55) Medication List - Last Reconciled 08/05/24 by MILADY Chino [celebrate Marcelino+D PO BID] [celebrate mvi PO DAILY] clotrimazole 1% 1 appl topical BID inulin (Fiber Gummies) grams PO iron,carbonyl-vitamin C 65 mg iron- 125 mg (Vitron-C) 1 tab PO BEDTIME sennosides (senna) 8.6 mg PO DAILY HPI Comments Details: This?is a?44?yo female who is s/p LSG 05/31/2021. Presents for 3 year 2 month post op visit. Weight at last visit on 01/14/2023 was 170.6 pounds with a BMI of 27.5. Pt reports increasing weight gain since last visit, now at 221lbs. Present meal plan includes: now using [employer] alyssa for the last few weeks with 3 shakes ([employer] premade) and one meal- protein and veg, sometimes 1/2 cup potato Exercise routine includes: walking 4x/week, 30 min due to work schedule, working 2 jobs Continues to have issues with excess skin of abdomen and upper thighs. Ongoing rashes in skin fold of abdomen and skin will open up and bleed. Using clotrimazole ointment for open areas which does help somewhat, but does not completely resolve the issue. Notices moisture collecting in the skin fold of abdomen, which smells unpleasant and she has to shower twice a day or more, and frequently clean. She has to wear compression pants/shorts with a tight waistband to hold excess skin in place to prevent movement. Regarding thighs, she experiences chafing of the inner thighs when skin rubs together. This has worsened over the summer due to increased sweating. Has to wear compressive shorts/clothing/girdle type garment to help hold the skin of thighs in place. Skin bounces around during exercise or walking which is very uncomfortable and limits full range of motion. She has two physical jobs (childcare, elder care) so excess skin gets in the way of typical job duties where she is active. [facility] Medical History Adjustment disorder, unspecified Arthritis BMI 45.0-49.9, adult COVID-19 vaccine series completed GERD (gastroesophageal reflux disease) History of adenoid cystic carcinoma Morbid obesity Nausea Pre-diabetes Steatosis, liver Torn meniscus Surgical History Hx laparoscopic cholecystectomy Hx of tonsillectomy Hx of wisdom tooth extraction S/P laparoscopic sleeve gastrectomy Family History Mother COVID-19 Sister No problems noted. Sister No problems noted. Sister No problems noted. Son No problems noted. Daughter No problems noted. Daughter No problems noted. Brother Crohn disease Brother No problems noted. Brother No problems noted. Father COVID-19 Crohn disease Social History Household Members: Spouse and Children Housing: House Are you a primary career services officer to a significant other at home: No Do you presently have visiting nurse or other home services: No Alcohol intake: current Alcohol intake frequency: holidays/special occasions only Patient Tobacco Use Status: Never used Tobacco service: No Physical Exam Vital Signs: BMI result Body Mass Index 35.7 Telehealth Telehealth Telehealth Platform: Telephone Location of provider rendering services: other Location of patient: address on file Patient Identification confirmed using: Name, : Yes Telehealth method: voice only Patient verbally consented to treatment: Yes Patient verbally consented to billing insurance company: Yes Patient informed of any privacy concerns related to visit: Yes Minutes spent on Phone/Video with Pt.: 16 Assessment & Plan Assessment & Plan (1) Obesity (BMI 30.0-34.9): Code(s): E66.9 - Obesity, unspecified Category: Medical (2) Excess skin: Code(s): L98.7 - Excessive and redundant skin and subcutaneous tissue Category: Medical (3) S/P laparoscopic sleeve gastrectomy: Code(s): Z98.84 - Bariatric surgery status Category: Surgical Plan Pt is interested in starting GLP1. Reviewed contraindications, discussed dosing. Discussed need for adequate protein intake while on GLP1s as well as frequent communication with our office. Pt will check in with me weekly and is aware that subsequent Rx will be dependent on frequent communication. She will continue meal plan per [employer] alyssa. Will send Rx for Zepbound. RTC 1 month. I spent a total of 30 minutes reviewing/updating records, examining the patient and counseling the patient on weight management as detailed above. Medications: New tirzepatide (weight loss) (Zepbound) for 4 weeks 2.5 mg (0.5 mL) subcut QWEEK 2 mL 0RF
[2024-08-05 12:08] VITALS: BMI 35.7
== END 2024-08-05 12:35 | disposition home or self-care (01) ==
LOC: HO.HBS 12:32
PROVIDERS: PCP Family Medicine; Visit Provider Physician Assistant Surgical
DX: E66.812 Obesity, class 2 (principal); Z68.35 Body mass index [BMI] 35.0-35.9, adult; L98.7 Excessive and redundant skin and subcutaneous tissue; Z98.84 Bariatric surgery status
CPT/HCPCS: 99214

== ENCOUNTER 2024-09-13 09:16 | Outpatient (AMB) | payer OTHER, SELFPAY ==
--- NOTE | 2024-09-13 09:08 | A.OFFVIS_ITS ---
VS Expanded 09/13/24 09:09 Height 5 ft 6 in Weight 219 lb BMI 35.3 Intake Visit Reasons: TELEPHONE PO LSG 05/31/21 Allergies No Known Allergies [No Known Allergies*] Allergy (Verified 01/14/23 15:55) Medication List - Last Reconciled 09/13/24 by MILADY Chino [celebrate Marcelino+D PO BID] [celebrate mvi PO DAILY] clotrimazole 1% 1 appl topical BID inulin (Fiber Gummies) grams PO iron,carbonyl-vitamin C 65 mg iron- 125 mg (Vitron-C) 1 tab PO BEDTIME phentermine 30 mg PO DAILY sennosides (senna) 8.6 mg PO DAILY HPI Comments Details: This?is a?44?yo female who is s/p LSG 05/31/2021. Weight at last visit on 08/05/2024 was 221 pounds, weight today is 219 pounds, representing a 2 pound weight loss with a BMI today of 35.3.? No complaints of nausea, emesis, abdominal pain or reflux, or constipation. Pt was started on phentermine as her insurance did not approve Zepbound. So far she is tolerating well, no side effects, sending BPs several times a week and no readings of > 140/90. Present meal plan includes: chose aggressive plan on [employer] alyssa Half [employer] at 4-6pm, 7-9pm, 10pm-12am, 1-3am, 6-8am works overnights snacks on fruits like berries, apples Exercise routine includes: walking, 4x week x 30min- limited in time available to do this due to 2 jobs [facility] Medical History Adjustment disorder, unspecified Arthritis BMI 45.0-49.9, adult COVID-19 vaccine series completed GERD (gastroesophageal reflux disease) History of adenoid cystic carcinoma Morbid obesity Nausea Pre-diabetes Steatosis, liver Torn meniscus Surgical History Hx laparoscopic cholecystectomy Hx of tonsillectomy Hx of wisdom tooth extraction S/P laparoscopic sleeve gastrectomy Family History Mother COVID-19 Sister No problems noted. Sister No problems noted. Sister No problems noted. Son No problems noted. Daughter No problems noted. Daughter No problems noted. Brother Crohn disease Brother No problems noted. Brother No problems noted. Father COVID-19 Crohn disease Social History Household Members: Spouse and Children Housing: House Are you a primary care transport nurse to a significant other at home: No Do you presently have visiting nurse or other home services: No Alcohol intake: current Alcohol intake frequency: holidays/special occasions only Patient Tobacco Use Status: Never used Tobacco service: No Telehealth Telehealth Telehealth Platform: Telephone Location of provider rendering services: other Location of patient: address on file Patient Identification confirmed using: Name, : Yes Telehealth method: voice only Patient verbally consented to treatment: Yes Patient verbally consented to billing insurance company: Yes Patient informed of any privacy concerns related to visit: Yes Minutes spent on Phone/Video with Pt.: 14 Assessment & Plan Assessment & Plan (1) Panniculitis: Code(s): M79.3 - Panniculitis, unspecified Category: Medical (2) Obesity (BMI 30.0-34.9): Code(s): E66.9 - Obesity, unspecified Category: Medical (3) S/P laparoscopic sleeve gastrectomy: Code(s): Z98.84 - Bariatric surgery status Category: Surgical Plan Pt will continue to follow [employer] meal plan and text BP readings to ensure no problems with phentermine. She will text me a reminder a few days before she is due for next refill. Continue clotrimazole ointment for rashes of excess skin. RTC 2 months.
[2024-09-13 09:09] VITALS: BMI 35.3
== END 2024-09-13 09:18 | disposition home or self-care (01) ==
LOC: HO.HBS 09:16
PROVIDERS: PCP Family Medicine; Visit Provider Physician Assistant Surgical
DX: M79.3 Panniculitis, unspecified (principal); E66.812 Obesity, class 2; Z68.35 Body mass index [BMI] 35.0-35.9, adult; Z98.84 Bariatric surgery status
CPT/HCPCS: 99214

== ENCOUNTER 2024-11-15 13:15 | Outpatient (AMB) | payer OTHER, SELFPAY ==
--- NOTE | 2024-11-15 13:03 | MHC.OFFVISWM ---
Intake Visit Reasons: TELEPHONE PO LSG 05/31/21 Allergies No Known Allergies [No Known Allergies*] Allergy (Verified 01/14/23 15:55) HPI Comments Details: This?is a?44?yo female who is s/p LSG 05/31/2021. Weight at last visit 09/13/2024 was 219 pounds; weight today .? No complaints of nausea, emesis, abdominal pain or reflux, or constipation. Pt continues on phentermine. So far she is tolerating well, no side effects, sending BPs several times a week and no readings of > 140/90. Present meal plan includes: chose aggressive plan on [employer] alyssa Half bottle [employer] at 4-6pm, 7-9pm, 10pm-12am, 1-3am, 6-8am works overnights snacks on fruits like berries, apples Exercise routine includes: walking, 4x week x 30min- limited in time available to do this due to 2 jobs [facility] Medical History Adjustment disorder, unspecified Arthritis BMI 45.0-49.9, adult COVID-19 vaccine series completed GERD (gastroesophageal reflux disease) History of adenoid cystic carcinoma Morbid obesity Nausea Pre-diabetes Steatosis, liver Torn meniscus Surgical History Hx laparoscopic cholecystectomy Hx of tonsillectomy Hx of wisdom tooth extraction S/P laparoscopic sleeve gastrectomy Family History Mother COVID-19 Sister No problems noted. Sister No problems noted. Sister No problems noted. Son No problems noted. Daughter No problems noted. Daughter No problems noted. Brother Crohn disease Brother No problems noted. Brother No problems noted. Father COVID-19 Crohn disease Social History Household Members: Spouse and Children Housing: House Are you a primary career education teacher to a significant other at home: No Do you presently have visiting nurse or other home services: No Alcohol intake: current Alcohol intake frequency: holidays/special occasions only Patient Tobacco Use Status: Never used Tobacco service: No Telehealth Telehealth Telehealth Platform: Telephone Location of provider rendering services: practice address Location of patient: address on file Patient Identification confirmed using: Name, : Yes Telehealth method: voice only Patient verbally consented to treatment: Yes Patient verbally consented to billing insurance company: Yes Patient informed of any privacy concerns related to visit: Yes Minutes spent on Phone/Video with Pt.: 16
--- NOTE | 2024-11-15 13:10 | MHC.OFFVISWM ---
VS Expanded 11/15/24 13:14 Height 5 ft 6 in Weight 215 lb BMI 34.7 Intake Visit Reasons: TELEPHONE PO LSG 05/31/21 Allergies No Known Allergies [No Known Allergies*] Allergy (Verified 01/14/23 15:55) Medication List - Last Reconciled 11/15/24 by MILADY Chino [celebrate Marcelino+D PO BID] [celebrate mvi PO DAILY] clotrimazole 1% 1 appl topical BID inulin (Fiber Gummies) grams PO iron,carbonyl-vitamin C 65 mg iron- 125 mg (Vitron-C) 1 tab PO BEDTIME phentermine 30 mg PO DAILY sennosides (senna) 8.6 mg PO DAILY HPI Comments Details: This?is a?44?yo female who is s/p LSG 05/31/2021. Weight at last visit on 08/31/2024 was 219 pounds, weight today is 215 pounds, representing a 4 pound weight loss with a BMI today of 35.3.? No complaints of nausea, emesis, abdominal pain or reflux, or constipation. Pt continues on phentermine. So far she is tolerating well, no side effects. BP today 117/76. Present meal plan includes: chose aggressive plan on [employer] alyssa Half bottle [employer] at 4-6pm, 7-9pm, 10pm-12am, 1-3am, 6-8am will have protein bars also if she feels hungry- will have half, save half for later works overnights also snacks on fruits like berries, apples, fruit Exercise routine includes: walking, 4x week x 30min- limited in time available to do this due to 2 jobs [facility] Medical History Adjustment disorder, unspecified Arthritis BMI 45.0-49.9, adult COVID-19 vaccine series completed GERD (gastroesophageal reflux disease) History of adenoid cystic carcinoma Morbid obesity Nausea Pre-diabetes Steatosis, liver Torn meniscus Surgical History Hx laparoscopic cholecystectomy Hx of tonsillectomy Hx of wisdom tooth extraction S/P laparoscopic sleeve gastrectomy Family History Mother COVID-19 Sister No problems noted. Sister No problems noted. Sister No problems noted. Son No problems noted. Daughter No problems noted. Daughter No problems noted. Brother Crohn disease Brother No problems noted. Brother No problems noted. Father COVID-19 Crohn disease Social History Household Members: Spouse and Children Housing: House Are you a primary long term care pharmacist to a significant other at home: No Do you presently have visiting nurse or other home services: No Alcohol intake: current Alcohol intake frequency: holidays/special occasions only Patient Tobacco Use Status: Never used Tobacco service: No Physical Exam Vital Signs: BMI result Body Mass Index 34.7 Telehealth Telehealth Telehealth Platform: Telephone Location of provider rendering services: practice address Location of patient: address on file Patient Identification confirmed using: Name, : Yes Telehealth method: voice only Patient verbally consented to treatment: Yes Patient verbally consented to billing insurance company: Yes Patient informed of any privacy concerns related to visit: Yes Minutes spent on Phone/Video with Pt.: 30 Assessment & Plan Assessment & Plan (1) Obesity (BMI 30.0-34.9): Code(s): E66.9 - Obesity, unspecified Category: Medical (2) S/P laparoscopic sleeve gastrectomy: Code(s): Z98.84 - Bariatric surgery status Category: Medical (3) Excess skin: Code(s): L98.7 - Excessive and redundant skin and subcutaneous tissue Category: Medical Plan Will text me next week for phentermine refill. Is considering signing up with [facility] because they are offering GLP1s at a lower romero. I told her that if she decides to start one of those drugs she needs to let me know and stop phentermine. RTC 3mo.
[2024-11-15 13:14] VITALS: BMI 34.7
--- OUTSIDE RECORDS SUMMARY | 2024-11-15 14:16 | XMS_ITS | Continuity of Care Document ---
Author Organization [facility] Address [address] [place] [id number] Social History Not on File Plan of Treatment Not on file
== END 2024-11-15 13:20 | disposition home or self-care (01) ==
LOC: HO.HBS 13:15
PROVIDERS: PCP Family Medicine; Visit Provider Physician Assistant Surgical
DX: E66.9 Obesity, unspecified (principal); Z68.34 Body mass index [BMI] 34.0-34.9, adult; Z98.84 Bariatric surgery status; L98.7 Excessive and redundant skin and subcutaneous tissue
CPT/HCPCS: 99214